=== PATIENT | male | born 1985 | race Caucasian/White ===

== ENCOUNTER 2018-04-24 12:05 | Inpatient (IN) | payer MEDICAID ==
[2018-04-24] MEDS ORDERED: Pantoprazole 80 MG in Sodium Chloride 0.9% 100 ML IV ONE (12:24)
[2018-04-24] MEDS ORDERED: Sodium Chloride 0.9% 1,000 ML IV ONE (12:27)
[2018-04-24 12:40] LABS: % BASOPHILS 0.4 % (0.0-2.0); % EOSINOPHILS 0.3 % (0.0-5.0); % LYMPHOCYTES 9.1 % (20.0-50.0); % MONOCYTES 2.4 % (2.0-10.0); % NEUTROPHILS 87.8 % (40.0-80.0); BASOPHILE ABSOLUTE 0.1 Th/cumm (0-0.2); HEMATOCRIT 49.8 % (41.0-60); HEMOGLOBIN 16.3 gm/dL (12-16); LYMPHOCYTE ABSOLUTE 1.3 Th/cmm (1.5-3.0); MEAN CELL VOLUME 86.4 fl (80-99); MEAN CORPUSCULAR HEMOGLOBIN 28.2 pg (26.0-30.0); MEAN CORPUSCULAR HGB CONC 32.6 pg (28.0-36.0); MEAN PLATELET VOLUME 9.7 fl; MONOCYTE ABSOLUTE 0.3 Th/cmm (0.3-1.0); NEUTROPHILE ABSOLUTE 12.3 Th/cmm (1.8-8.0); PLATELET COUNT 240 Th/cmm (150-400); RED BLOOD COUNT 5.76 Mil/cmm (4.30-5.70); RED CELL DISTRIBUTION WIDTH 12.1 % (11.5-20.0)
--- NOTE | 2018-04-24 12:42 | ED Physician Chart ---
ED Chief Complaint/HPI - Patient Information Date Seen:: 04/24/18 Time Seen:: 12:21 Chief Complaint:: nausea, vomiting & abd pain History of Present Illness:: nausea, vomiting & abd pain in a man who knows that he is a diabetic and stopped taking metformin and glyburide years ago. Allergies:: Allergies Allergy/AdvReac Type Severity Reaction Status Date / Time No Known Allergies Allergy Verified 04/24/18 12:20 Vitals:: Vital Signs - 8 hr 04/24/18 12:21 Temp 98.8 F HR 115 RR 22 BP 150/93 O2 Sat % 100 Historian:: Patient, Family Member Review:: Nurse's Note Reviewed ED Review of Systems - Review of Systems General/Constitutional: No fever, No chills, No weight loss, No weakness, No diaphoresis, No edema, No loss of appetite Skin: No skin lesions, No rash, No bruising Head: No headache, No light-headedness Eyes: No loss of vision, No pain, No diplopia ENT: No earache, No nasal drainage, No sore throat, No tinnitus Neck: No neck pain, No swelling, No thyromegaly, No stiffness, No mass noted Cardio Vascular: No chest pain, No palpitations, No PND, No orthopnea, No edema Pulmonary: No SOB, No cough, No sputum, No wheezing GI: Nausea, Vomiting, Pain G/U: No dysuria, No frequency, No hematuria Musculoskeletal: No bone or joint pain, No back pain, No muscle pain Endocrine: No polyuria, No polydipsia Psychiatric: No prior psych history, No depression, No anxiety, No suicidal ideation Hematopoietic: No bruising, No lymphadenopathy Allergic/Immuno: No urticaria, No angioedema Neurological: No syncope, No focal symptoms, No weakness, No paresthesia, No headache, No seizure, No dizziness, No confusion, No vertigo ED Past Medical History - Past Medical History Obtainable: Yes Past Medical History: DM ED Physical Exam - Physical Examination General/Constitutional: Awake, GCS 15 Other Gen/Cons comments:: pale and ill-appearing. Head: Atraumatic Eyes: Lids, conjuctiva normal Other Skin comments:: pale skin Neck: Nontender, Full ROM w/o pain, No JVD, No nuchal rigidity, No bruit, No mass, No stridor Respiratory: Nl effort/Exclusion, Clear to Auscultation, No Wheeze/Rhonchi/Rales Other Cardio Vascular comments:: tachycardia. Other GI comments:: nonspecific tenderness. coffee ground emesis. : No CVA tenderness Extremities: No tenderness or effusion Neuro/Psych: Alert/oriented, Normal motor strength Other Neuro/Psych comments:: in distress from vomiting. Misc: Normal back, No paraspinal tenderness ED Labs/Radiology/EKG Results - Lab Results Results: Laboratory Tests 04/24/18 12:16 POC Glucose 426 H ED Assessment - Assessment General Assessment: unifocal PVC's on monitor. Assessment/Comments:: EKG from 12:49:35 p.m. reveals sinus tachycardia with a flipped t wave in III, AVF and V1. spoke to Dr. Dobbs about admitting this patient to the ICU. ED Septic Shock - . Is Septic Shock (SBP<90, OR Lactate>4 mmol\L) present?: No - <6hrs of presentation: Vital Signs: Vital Signs - 8 hr 04/24/18 12:21 Temp 98.8 F HR 115 RR 22 BP 150/93 O2 Sat % 100 ED Reassessment (Disposition) - Reassessment Reassessment Condition:: Improved - Diagnosis Diagnosis:: Diabetic ketoacidosis Poorly controlled diabetes in a non-compliant diabetic Upper GI bleed Leukocytosis Urinary retention Enlarged prostate. Splenomegaly Distended stomach. - Patient Disposition Discharge/Transfer:: Acute Care w/in this hosp Admitted to:: ICU Condition at Disposition:: Stable, Improved
[2018-04-24 13:00] LABS: ALB/GLOB RATIO 1.6 (1.0-1.8); ALBUMIN 4.7 gm/dL (4.2-5.5); ALKALINE PHOSPHATASE 73 U/L (34-104); AMYLASE SERUM 30 U/L (29-103); ANION GAP 30.6 (7.0-16.0); BILIRUBIN,TOTAL 0.6 mg/dL (0.3-1.0); BUN - UREA NITROGEN 22 mg/dL (7-25); CALCIUM SERUM 10.1 mg/dL (8.6-10.3); CARBON DIOXIDE 12.3 mEq/L (21.0-31.0); CHLORIDE 93 mEq/L (98-107); CREATININE - SERUM 1.2 mg/dL (0.7-1.3); GFR AFRICAN-AMERICAN > 60.0 ml/min (>90); GFR NON AFRICAN-AMERICAN > 60.0 ml/min; LIPASE 3 U/L (11-82); MAGNESIUM 1.8 mg/dL (1.9-2.7); PHOSPHOROUS 4.3 mg/dL (2.5-5.0); POTASSIUM SERUM 3.9 mEq/L (3.5-5.1); SGOT 15 U/L (13-39); SGPT/ALT 37 U/L (7-52); SODIUM SERUM 132 mEq/L (136-145); TOTAL PROTEIN,SERUM 7.7 gm/dL (6.0-8.3)
[2018-04-24 13:01] LABS: GLUCOSE 470 mg/dL (70-105)
[2018-04-24 13:27] LABS: ALLEN TEST Positive; pH 7.33 (7.35-7.45)
[2018-04-24] MEDS ORDERED: INSULIN HUMAN REGULAR 100 UNITS/ML UNIT IVP ONE (13:51)
[2018-04-24] MEDS ORDERED: INSULIN HUMAN REGULAR 100 UNITS/ML UNIT ONE (14:25)
[2018-04-24] MEDS ORDERED: Magnesium Sulfate 1 gm/2 mL 2mL Vial IV ONE (14:25)
[2018-04-24] MEDS: INSULIN ASPART SLIDING SCALE 100 UNITS/ML UNIT SUBQ SCH ×2 (18:17→21:40)
--- NOTE | 2018-04-24 18:36 | Consultation ---
DATE OF CONSULTATION: 04/24/2018 REASON FOR CONSULTATION: Abdominal pain, nausea, vomiting. This consult was obtained through the request of Dr. Dobbs for this 33-year-old with history of diabetes presenting to the hospital because of abdominal pain, nausea, vomiting, found to be in diabetic ketoacidosis and because of the pain and nausea, vomiting GI consult was called in for further evaluation. The patient denies any hematemesis, melena or hematochezia. Some loose bowel movement yesterday. Pain has been going on for a couple of days, had those episodes every now and then. The patient never had endoscopy before and right now pain is better. PAST MEDICAL HISTORY: Diabetes. PAST SURGICAL HISTORY: Negative. SOCIAL HISTORY: Smokes 1 pack of cigarettes a day, nonalcoholic, used cannabis. FAMILY HISTORY: Noncontributory. ALLERGIES: No known drug allergy. MEDICATIONS: The patient was started on Protonix, and insulin. REVIEW OF SYSTEMS: He has about 30-35 pounds weight loss over the last couple of months. He has loose bowel movement every now and then. No constipation, no bleeding. PHYSICAL EXAMINATION: GENERAL: The patient is awake. Oriented to self, place, and time, in mild distress. VITAL SIGNS: Blood pressure is 150/93, heart rate is 115, respiratory rate is 22, and temperature is 98.8. HEAD AND NECK: Pupils reactive to light and accommodation. Extraocular muscles intact. Sclerae are anicteric. Conjunctivae not pale. Oral cavity, no lesion. NECK: Supple, no jugular venous distention, no carotid lymph node. CHEST: Good respiratory movements. LUNGS: Clear to auscultation. CARDIOVASCULAR: Regular rate and rhythm. No murmur or gallop. ABDOMEN: Soft, positive bowel sounds. Abdomen is not tender, but the sensation of pressure. EXTREMITIES: Lower extremities, no edema. CENTRAL NERVOUS SYSTEM: Grossly nonfocal. LABORATORY DATA: White count 14. Rest of CBC unremarkable. Bicarbonate is 12.3, glucose 170, magnesium 1.8. Liver enzymes are normal. Lipase is 3. IMPRESSION: A 33-year-old diabetic presented with diabetic ketoacidosis and abdominal pain, nausea, vomiting. ASSESSMENT AND PLAN: 1. Abdominal pain, nausea, vomiting, this is secondary to diabetic ketoacidosis. At this time, it seems clinically patient is better, so we will continue his IV fluids. Continue clear liquid diet, sugar free, he is to be managed for the diabetes by an explosives operator and PCP, but we will continue with PPI, liquid diet, IV fluids, monitor his symptoms. At this time, it seems it is all related to diabetic ketoacidosis. He should improve gradually. If not, then we will consider endoscopy. 2. Diabetic ketoacidosis per Dr. Dobbs and other pre owned sales consultant. Thank you, Dr. Dobbs, for allowing me to participate in the care of the patient. If you have any further questions, please let me know. JOB# [id number]
[2018-04-24 18:43] LABS: URINE SOURCE CATH
[2018-04-24 18:51] VITALS: BP 132/78
[2018-04-24 19:03] LABS: URINE BILIRUBIN NEGATIVE (NEGATIVE); URINE BLOOD SMALL (NEGATIVE); URINE GLUCOSE (UA) >=1000 mg/dL (NEGATIVE); URINE KETONE >=80 mg/dL (NEGATIVE); URINE LEUKOCYTE ESTERASE NEGATIVE (NEGATIVE); URINE MICROSCOPIC INDICATED? YES; URINE NITRATE NEGATIVE (NEGATIVE); URINE PH 5.5 (4.6 - 8.0); URINE PROTEIN TRACE mg/dL (NEGATIVE); URINE UROBILINOGEN 0.2 E.U./dL (0.2 - 1.0)
[2018-04-24 19:04] LABS: URINE CLARITY CLEAR (CLEAR); URINE COLOR YELLOW
[2018-04-24 19:05] LABS: URINE BACTERIA FEW /hpf (NONE SEEN); URINE EPITHELIAL CELLS NONE SEEN /lpf (FEW); URINE RBC NONE SEEN /hpf (0-5)
[2018-04-24 19:06] LABS: AMPHETAMINE URINE NEGATIVE (NEGATIVE); BARBITURATES URINE NEGATIVE (NEGATIVE); BENZODIAZEPINES QUAL URINE NEGATIVE (NEGATIVE); CANNABINOID THC NEGATIVE (NEGATIVE); COCAINE METABOLITE QUAL URINE NEGATIVE (NEGATIVE); METHADONE URINE NEGATIVE (NEGATIVE); METHAMPHETAMINES QUAL URINE NEGATIVE (NEGATIVE); OPIATES (MORPHINE) QUAL. URINE NEGATIVE (NEGATIVE); PHENCYCLIDINE (PCP) URINE NEGATIVE (NEGATIVE); TRICYCLICS (TCA) QUAL. URINE NEGATIVE (NEGATIVE)
[2018-04-24] MEDS ORDERED: Piperacillin Sodium/Tazobact 3.375 gm Vial IV ONE ×2 (21:39)
[2018-04-24] MEDS ORDERED: Pantoprazole 80 MG in Sodium Chloride 0.9% 100 ML IV SCH (23:00)
[2018-04-24] MEDS ORDERED: HYDROmorphone 2 mg/mL 1mL Vial IVP ONE (23:11)
[2018-04-25 05:30] LABS: % BASOPHILS 0.9 % (0.0-2.0); % EOSINOPHILS 0.1 % (0.0-5.0); % LYMPHOCYTES 13.5 % (20.0-50.0); % NEUTROPHILS 79.5 % (40.0-80.0); BASOPHILE ABSOLUTE 0.2 Th/cumm (0-0.2); HEMATOCRIT 45.9 % (41.0-60); LYMPHOCYTE ABSOLUTE 2.3 Th/cmm (1.5-3.0); MEAN CELL VOLUME 84.3 fl (80-99); MEAN CORPUSCULAR HEMOGLOBIN 29.3 pg (26.0-30.0); MEAN CORPUSCULAR HGB CONC 34.8 pg (28.0-36.0); MEAN PLATELET VOLUME 9.1 fl; NEUTROPHILE ABSOLUTE 13.5 Th/cmm (1.8-8.0); PLATELET COUNT 234 Th/cmm (150-400); RED BLOOD COUNT 5.44 Mil/cmm (4.30-5.70); RED CELL DISTRIBUTION WIDTH 12.2 % (11.5-20.0)
[2018-04-25 05:55] LABS: ALB/GLOB RATIO 1.6 (1.0-1.8); ALKALINE PHOSPHATASE 56 U/L (34-104); ANION GAP 16.7 (7.0-16.0); BILIRUBIN,TOTAL 0.5 mg/dL (0.3-1.0); BUN - UREA NITROGEN 22 mg/dL (7-25); CALCIUM SERUM 9.4 mg/dL (8.6-10.3); CARBON DIOXIDE 19.4 mEq/L (21.0-31.0); CHLORIDE 103 mEq/L (98-107); GFR AFRICAN-AMERICAN > 60.0 ml/min (>90); GFR NON AFRICAN-AMERICAN > 60.0 ml/min; POTASSIUM SERUM 4.1 mEq/L (3.5-5.1); SGOT 10 U/L (13-39); SGPT/ALT 26 U/L (7-52); SODIUM SERUM 135 mEq/L (136-145); TOTAL PROTEIN,SERUM 6.5 gm/dL (6.0-8.3)
[2018-04-25 06:08] LABS: GLUCOSE 282 mg/dL (70-105)
[2018-04-25 06:13] LABS: MAGNESIUM 2.1 mg/dL (1.9-2.7); PHOSPHOROUS 2.8 mg/dL (2.5-5.0)
[2018-04-25] MEDS ORDERED: Morphine Sulfate 2 mg/mL 1mL Syr IVP PRN (07:10)
[2018-04-25] MEDS: INSULIN ASPART SLIDING SCALE 100 UNITS/ML UNIT SUBQ SCH ×4 (07:25→21:00)
[2018-04-25] MEDS: Sodium Chloride 0.45% 1,000 ML IV SCH ×2 (07:33→23:56)
--- NOTE | 2018-04-25 07:55 | Diagnostic Imaging Report ---
CT abdomen and pelvis without intravenous contrast Indication: Abdominal pain Comparison: None, Technique: Axial images were obtained from the lung bases to the bilateral proximal femurs without IV contrast. Coronal reconstructions were made. total DLP: 312, CTDI5.8 FINDINGS: Hypoventilatory and atelectatic changes of the lung bases are noted. Assessment of the solid organs is limited due to lack of IV contrast. No evidence of focal hepatic, or splenic lesions. Mildly prominent spleen is noted. Distended stomach is noted fluid and food contents. Limited assessment of the pancreas demonstrates no obvious focal lesions. No focal adrenal lesions. There is mild right hydronephrosis. Markedly distended urinary bladder is noted. Punctate prostate gland calcifications are noted. The prostate gland is borderline prominent. No renal stones. Mild right hydroureter is noted. No obvious ureteral stones identified. Stool and air filled loops of bowel are noted. Appendix is not well-visualized. No free air or free fluid. There is minimal spinal scoliosis. IMPRESSION: Mild right hydronephrosis and mild right hydroureter. No radiopaque renal or ureteral stones identified. This may be due to a markedly distended urinary bladder or may be due to underlying inflammatory process. Please clinical findings and UA levels. Borderline prominent prostate gland. Borderline splenomegaly. The appendix is not visualized. Distended stomach with fluid and food contents.
--- NOTE | 2018-04-25 08:22 | Diagnostic Imaging Report ---
Portable chest x-ray History: Shortness of breath Allowing for portable technique the heart size is normal. No focal pulmonary parenchymal processes. No hilar or mediastinal abnormalities. Impression: No acute abnormalities.
--- NOTE | 2018-04-25 08:30 | Diagnostic Imaging Report ---
Portable chest x-ray History: Cough Allowing for portable technique the heart size is normal. No focal pulmonary parenchymal processes. No hilar or mediastinal abnormalities. Impression: No acute abnormalities.
--- NOTE | 2018-04-25 09:03 | History and Physical ---
History of Present Illness - HPI Chief Complaint: Nausea, vomiting, and abdominal pain. Elevated blood sugars HPI: 33y/o male who presents to [facility] for history of nausea, vomiting and abdominal pain. Patient has a history of diabetes mellitus and had stopped the medication years ago. Patient was previously taking Metformin and glyburide. His intiial labwork revealed the following ... WBC 14.0 H/H 16.3/49.8 plat 240 Na 132 K 3.9 Bun/cr 22/1.2 glu 470 Mg 1.8 UA glu >1000 ketones >80 blood >small Patient was subsequently admitted to ICU for further possible DKA. Vital Signs: Last Vital Signs Temp 98.8 F 04/25/18 04:00 Pulse 109 04/25/18 06:00 Resp 12 04/25/18 06:00 BP 144/94 04/25/18 06:00 Pulse Ox 100 04/25/18 08:00 Past Medical History Cardiovascular: Report: No Pertinent Hx Pulmonary: Report: No Pertinent Hx [place] [place]: Report: No Pertinent Hx GI: Report: No Pertinent Hx Psych: Report: No Pertinent Hx Musculoskeletal: Report: No Pertinent Hx Rheumatologic: Report: No pertinent Hx Infectious Disease: Report: No Pertinent Hx Renal/: Report: No Pertinent Hx Endocrine: Report: Diabetes Dermatology: Report: No Pertinent Hx - Past Surgical History Past Surgical History: No pertinent Hx Family Medical History - Family Member Mother Name:: MAXIME Living Status: Still Living Hx Family Cancer: No Hx Family Coronary Artery Disease: No Hx Family Congestive Heart Failure: No Hx Family Hypertension: Yes Hx Family Stroke: No Hx Family Diabetes: Yes Hx Family Seizures: No Hx Family Dementia: No Hx Family AIDS: No Hx Family HIV: No Hx Family COPD: No Hx Family Hepatitis: No Hx Family Psychiatric Problems: No Hx Family Tuberculosis: No Social History Smoke: No Alcohol: None Drugs: None Lives: With Family - Medications Home Medications: Home Medication Medication Instructions Recorded Type NK [No Home Meds] 04/24/18 History - Allergies Allergies/Adverse Reactions: Allergies Allergy/AdvReac Type Severity Reaction Status Date / Time No Known Allergies Allergy Verified 04/24/18 12:20 Review of Systems - Review of Systems Constitutional: Report: No Significant Eyes: Report: No Significant ENT: Report: No Significant Respiratory: Report: Shortness of Breath Cardiovascular: Report: No Significant Gastrointestinal: Report: Nausea, Vomiting, Abdominal Pain Genitourinary: Report: No Significant Musculoskeletal: Report: No Significant Skin: Report: No Significant Neurological: Report: No Significant Physical Exam - Physical Exam HEENT: Report: Ears Nose Throat within normal limits, Pharnyx within normal limits Neck: Report: Within normal limits Cardiovascular Systems: Report: +s1/s2 noted, Regular, Rate and Rhythm Respiratory: Report: Breath Sounds are within normal limits, Clear to Auscultation of lung [place] Abdomen: Report: Tender to palpation Back: Report: Inspection of back is within normal limits. Extremities: Report: Non-tender to palpation. - Lab Results All Lab Results last 24 hours: Laboratory Results - last 24 hr 04/24/18 04/24/18 04/24/18 12:16 12:30 12:30 WBC 14.0 H RBC 5.76 H Hgb 16.3 Hct 49.8 MCV 86.4 MCH 28.2 MCHC Differential 32.6 RDW 12.1 Plt Count 240 MPV 9.7 Neutrophils % 87.8 H Lymphocytes % 9.1 L Monocytes % 2.4 Eosinophils % 0.3 Basophils % 0.4 Specimen Source Sample Site pH pCO2 pO2 HCO3 Base Excess O2 Saturation Davi Test Vent Rate Inspired O2 Tidal Volume PEEP Pressure (ins/psv/peep) Critical Value Sodium 132 L Potassium 3.9 Chloride 93 L Carbon Dioxide 12.3 L Anion Gap 30.6 H BUN 22 Creatinine 1.2 Est GFR ( Amer) > 60.0 Est GFR (Non-Af Amer) > 60.0 BUN/Creatinine Ratio 18.3 Glucose 470 H* POC Glucose 426 H Whole Bld Lactic Acid Calcium 10.1 Phosphorus 4.3 Magnesium 1.8 L Total Bilirubin 0.6 AST 15 ALT 37 Alkaline Phosphatase 73 Troponin I Total Protein 7.7 Albumin 4.7 Globulin 3.0 Albumin/Globulin Ratio 1.6 Amylase 30 Lipase 3 L Urine Source Urine Color Urine Clarity Urine pH Ur Specific Timpson Urine Protein Urine Glucose (UA) Urine Ketones Urine Blood Urine Nitrate Urine Bilirubin Urine Urobilinogen Ur Leukocyte Esterase Urine RBC Urine WBC Ur Epithelial Cells Urine Bacteria Urine Opiates Screen Urine Methadone Screen Ur Barbiturates Screen Ur Tricyclics Screen Ur Phencyclidine Scrn Amphetamines Screen U Methamphetamines Scrn U Benzodiazepines Scrn U Cocaine Metab Screen U Cannabinoids Screen Blood Type Antibody Screen 1004/24/18 04/24/18 12:30 12:30 12:30 WBC RBC Hgb Hct MCV MCH MCHC Differential RDW Plt Count MPV Neutrophils % Lymphocytes % Monocytes % Eosinophils % Basophils % Specimen Source Sample Site pH pCO2 pO2 HCO3 Base Excess O2 Saturation Davi Test Vent Rate Inspired O2 Tidal Volume PEEP Pressure (ins/psv/peep) Critical Value Sodium Potassium Chloride Carbon Dioxide Anion Gap BUN Creatinine Est GFR ( Amer) Est GFR (Non-Af Amer) BUN/Creatinine Ratio Glucose POC Glucose Whole Bld Lactic Acid 4.06 H* Calcium Phosphorus Magnesium Total Bilirubin AST ALT Alkaline Phosphatase Troponin I 0.01 Total Protein Albumin Globulin Albumin/Globulin Ratio Amylase Lipase Urine Source Urine Color Urine Clarity Urine pH Ur Specific Timpson Urine Protein Urine Glucose (UA) Urine Ketones Urine Blood Urine Nitrate Urine Bilirubin Urine Urobilinogen Ur Leukocyte Esterase Urine RBC Urine WBC Ur Epithelial Cells Urine Bacteria Urine Opiates Screen Urine Methadone Screen Ur Barbiturates Screen Ur Tricyclics Screen Ur Phencyclidine Scrn Amphetamines Screen U Methamphetamines Scrn U Benzodiazepines Scrn U Cocaine Metab Screen U Cannabinoids Screen Blood Type O POSITIVE Antibody Screen NEGATIVE 04/24/18 04/24/18 04/24/18 13:14 13:50 14:24 WBC RBC Hgb Hct MCV MCH MCHC Differential RDW Plt Count MPV Neutrophils % Lymphocytes % Monocytes % Eosinophils % Basophils % Specimen Source Arterial Sample Site Right Radial pH 7.33 L pCO2 28.0 L pO2 109.0 H HCO3 17.4 L Base Excess -9.7 L O2 Saturation 98.0 Davi Test Positive Vent Rate NA Inspired O2 21% Tidal Volume NA PEEP NA Pressure (ins/psv/peep) NA Critical Value HSTEHNO Sodium Potassium Chloride Carbon Dioxide Anion Gap BUN Creatinine Est GFR ( Amer) Est GFR (Non-Af Amer) BUN/Creatinine Ratio Glucose POC Glucose 404 H Whole Bld Lactic Acid 1.45 Calcium Phosphorus Magnesium Total Bilirubin AST ALT Alkaline Phosphatase Troponin I Total Protein Albumin Globulin Albumin/Globulin Ratio Amylase Lipase Urine Source Urine Color Urine Clarity Urine pH Ur Specific Timpson Urine Protein Urine Glucose (UA) Urine Ketones Urine Blood Urine Nitrate Urine Bilirubin Urine Urobilinogen Ur Leukocyte Esterase Urine RBC Urine WBC Ur Epithelial Cells Urine Bacteria Urine Opiates Screen Urine Methadone Screen Ur Barbiturates Screen Ur Tricyclics Screen Ur Phencyclidine Scrn Amphetamines Screen U Methamphetamines Scrn U Benzodiazepines Scrn U Cocaine Metab Screen U Cannabinoids Screen Blood Type Antibody Screen 04/24/18 04/24/18 04/24/18 17:09 18:30 18:30 WBC RBC Hgb Hct MCV MCH MCHC Differential RDW Plt Count MPV Neutrophils % Lymphocytes % Monocytes % Eosinophils % Basophils % Specimen Source Sample Site pH pCO2 pO2 HCO3 Base Excess O2 Saturation Davi Test Vent Rate Inspired O2 Tidal Volume PEEP Pressure (ins/psv/peep) Critical Value Sodium Potassium Chloride Carbon Dioxide Anion Gap BUN Creatinine Est GFR ( Amer) Est GFR (Non-Af Amer) BUN/Creatinine Ratio Glucose POC Glucose 375 H Whole Bld Lactic Acid Calcium Phosphorus Magnesium Total Bilirubin AST ALT Alkaline Phosphatase Troponin I Total Protein Albumin Globulin Albumin/Globulin Ratio Amylase Lipase Urine Source CATH Urine Color YELLOW Urine Clarity CLEAR Urine pH 5.5 Ur Specific Timpson 1.025 Urine Protein TRACE Urine Glucose (UA) >=1000 H Urine Ketones >=80 H Urine Blood SMALL H Urine Nitrate NEGATIVE Urine Bilirubin NEGATIVE Urine Urobilinogen 0.2 Ur Leukocyte Esterase NEGATIVE Urine RBC NONE SEEN Urine WBC 2-5 Ur Epithelial Cells NONE SEEN Urine Bacteria FEW Urine Opiates Screen NEGATIVE Urine Methadone Screen NEGATIVE Ur Barbiturates Screen NEGATIVE Ur Tricyclics Screen NEGATIVE Ur Phencyclidine Scrn NEGATIVE Amphetamines Screen NEGATIVE U Methamphetamines Scrn NEGATIVE U Benzodiazepines Scrn NEGATIVE U Cocaine Metab Screen NEGATIVE U Cannabinoids Screen NEGATIVE Blood Type Antibody Screen 04/24/18 04/25/18 04/25/18 21:13 04:50 04:50 WBC 17.0 H RBC 5.44 Hgb 16.0 Hct 45.9 MCV 84.3 MCH 29.3 MCHC Differential 34.8 RDW 12.2 Plt Count 234 MPV 9.1 Neutrophils % 79.5 Lymphocytes % 13.5 L Monocytes % 6.0 Eosinophils % 0.1 Basophils % 0.9 Specimen Source Sample Site pH pCO2 pO2 HCO3 Base Excess O2 Saturation Davi Test Vent Rate Inspired O2 Tidal Volume PEEP Pressure (ins/psv/peep) Critical Value Sodium 135 L Potassium 4.1 Chloride 103 Carbon Dioxide 19.4 L Anion Gap 16.7 H BUN 22 Creatinine 1.0 Est GFR ( Amer) > 60.0 Est GFR (Non-Af Amer) > 60.0 BUN/Creatinine Ratio 22.0 Glucose 282 H D POC Glucose 250 H Whole Bld Lactic Acid Calcium 9.4 Phosphorus Magnesium Total Bilirubin 0.5 AST 10 L ALT 26 Alkaline Phosphatase 56 Troponin I Total Protein 6.5 Albumin 4.0 L Globulin 2.5 Albumin/Globulin Ratio 1.6 Amylase Lipase Urine Source Urine Color Urine Clarity Urine pH Ur Specific Timpson Urine Protein Urine Glucose (UA) Urine Ketones Urine Blood Urine Nitrate Urine Bilirubin Urine Urobilinogen Ur Leukocyte Esterase Urine RBC Urine WBC Ur Epithelial Cells Urine Bacteria Urine Opiates Screen Urine Methadone Screen Ur Barbiturates Screen Ur Tricyclics Screen Ur Phencyclidine Scrn Amphetamines Screen U Methamphetamines Scrn U Benzodiazepines Scrn U Cocaine Metab Screen U Cannabinoids Screen Blood Type Antibody Screen 04/25/18 04/25/18 04:50 04:56 WBC RBC Hgb Hct MCV MCH MCHC Differential RDW Plt Count MPV Neutrophils % Lymphocytes % Monocytes % Eosinophils % Basophils % Specimen Source Sample Site pH pCO2 pO2 HCO3 Base Excess O2 Saturation Davi Test Vent Rate Inspired O2 Tidal Volume PEEP Pressure (ins/psv/peep) Critical Value Sodium Potassium Chloride Carbon Dioxide Anion Gap BUN Creatinine Est GFR ( Amer) Est GFR (Non-Af Amer) BUN/Creatinine Ratio Glucose POC Glucose 260 H Whole Bld Lactic Acid Calcium Phosphorus 2.8 Magnesium 2.1 Total Bilirubin AST ALT Alkaline Phosphatase Troponin I Total Protein Albumin Globulin Albumin/Globulin Ratio Amylase Lipase Urine Source Urine Color Urine Clarity Urine pH Ur Specific Timpson Urine Protein Urine Glucose (UA) Urine Ketones Urine Blood Urine Nitrate Urine Bilirubin Urine Urobilinogen Ur Leukocyte Esterase Urine RBC Urine WBC Ur Epithelial Cells Urine Bacteria Urine Opiates Screen Urine Methadone Screen Ur Barbiturates Screen Ur Tricyclics Screen Ur Phencyclidine Scrn Amphetamines Screen U Methamphetamines Scrn U Benzodiazepines Scrn U Cocaine Metab Screen U Cannabinoids Screen Blood Type Antibody Screen - Assessment Assessment: Hyperglycemia Diabetes Mellitus uncontrolled possibly GI Bleed diabetic ketoacidosis Leukocytosis urinary retention Splenomegaly enlarged prostate - Plan Plan: Patient to be admitted to ICU for close monitoring GI consult Keep NPO, start IV fluids. Accuchecks ac hs Medium dose insulin sliding scale IV Zosyn ID consult Urology consult
--- NOTE | 2018-04-25 14:10 | Consultation ---
Consult Note - Consult Note Service Date: 04/25/18 Referring Physician: Ilia Dobbs Consult Note: PHYSICIAN Consultation Note: Date of Admission: 04/24/18 Purpose of Consultation: Leukocytosis. Chief Complaint: Patient STEPAN COTTRELL was admitted to location Intensive Care Unit with HYPERGLYCEMIA, POSSIBLE GI BLEED. History of Present Illness: 33y/o male with history of DM2, not taking his medication for a year presents to the ER for nausea, vomiting, abdominal pain. On initial evaluation, his temperature was 98.8 F and WBC count was 14k. His glucose was >400. Lactic acid was > 4, after fluid resiscitation, his sepsis w/u was performed and ID contult was called. Meanwhile, he was started on Past Medical History: DM2. Diagnoses TYPE 2 DIABETES MELLITUS WITH KETOACIDOSIS WITHOUT COMA (04/24/18) WEAKNESS (04/24/18) Allergies Allergy/AdvReac Type Severity Reaction Status Date / Time No Known Allergies Allergy Verified 04/24/18 12:20 Vital Signs Temp 98 F 04/25/18 12:00 Pulse 112 04/25/18 12:00 Resp 13 04/25/18 12:00 BP 126/86 04/25/18 12:00 Pulse Ox 100 04/25/18 12:00 Intake & Output 04/24/18 04/25/18 04/25/18 18:59 06:59 18:59 Intake Total 402 100 50 Output Total 952 900 Balance -550 -800 50 Weight (lbs) 59.506 kg 59.829 kg Intake: Intake, IV Amount 52 100 50 Piperacillin Sodium/ 50 Tazobact 3.375 gm In Sodium Chloride 0.9% 50 ml @ 100 mls/hr IV Q6H [facility] Rx#:[id number] Piperacillin Sodium/ 100 Tazobact 3.375 gm In Sodium Chloride 0.9% 50 ml @ 100 mls/hr IV Q8HR [facility] Rx#:[id number] Oral 350 Output: Urine 950 900 Emesis 2 Other: # Bowel Movements 1 Weight Source Bedscale Bedscale Laboratory Results - last 24 hr 04/24/18 04/24/18 04/24/18 12:30 13:50 14:24 WBC RBC Hgb Hct MCV MCH MCHC Differential RDW Plt Count MPV Neutrophils % Lymphocytes % Monocytes % Eosinophils % Basophils % Sodium Potassium Chloride Carbon Dioxide Anion Gap BUN Creatinine Est GFR ( Amer) Est GFR (Non-Af Amer) BUN/Creatinine Ratio Glucose POC Glucose 404 H Whole Bld Lactic Acid 1.45 Calcium Phosphorus Magnesium Total Bilirubin AST ALT Alkaline Phosphatase Total Protein Albumin Globulin Albumin/Globulin Ratio Urine Source Urine Color Urine Clarity Urine pH Ur Specific [place] Urine Protein Urine Glucose (UA) Urine Ketones Urine Blood Urine Nitrate Urine Bilirubin Urine Urobilinogen Ur Leukocyte Esterase Urine RBC Urine WBC Ur Epithelial Cells Urine Bacteria Urine Opiates Screen Urine Methadone Screen Ur Barbiturates Screen Ur Tricyclics Screen Ur Phencyclidine Scrn Amphetamines Screen U Methamphetamines Scrn U Benzodiazepines Scrn U Cocaine Metab Screen U Cannabinoids Screen Antibody Screen NEGATIVE 04/24/18 04/24/18 04/24/18 17:09 18:30 18:30 WBC RBC Hgb Hct MCV MCH MCHC Differential RDW Plt Count MPV Neutrophils % Lymphocytes % Monocytes % Eosinophils % Basophils % Sodium Potassium Chloride Carbon Dioxide Anion Gap BUN Creatinine Est GFR ( Amer) Est GFR (Non-Af Amer) BUN/Creatinine Ratio Glucose POC Glucose 375 H Whole Bld Lactic Acid Calcium Phosphorus Magnesium Total Bilirubin AST ALT Alkaline Phosphatase Total Protein Albumin Globulin Albumin/Globulin Ratio Urine Source CATH Urine Color YELLOW Urine Clarity CLEAR Urine pH 5.5 Ur Specific [place] 1.025 Urine Protein TRACE Urine Glucose (UA) >=1000 H Urine Ketones >=80 H Urine Blood SMALL H Urine Nitrate NEGATIVE Urine Bilirubin NEGATIVE Urine Urobilinogen 0.2 Ur Leukocyte Esterase NEGATIVE Urine RBC NONE SEEN Urine WBC 2-5 Ur Epithelial Cells NONE SEEN Urine Bacteria FEW Urine Opiates Screen NEGATIVE Urine Methadone Screen NEGATIVE Ur Barbiturates Screen NEGATIVE Ur Tricyclics Screen NEGATIVE Ur Phencyclidine Scrn NEGATIVE Amphetamines Screen NEGATIVE U Methamphetamines Scrn NEGATIVE U Benzodiazepines Scrn NEGATIVE U Cocaine Metab Screen NEGATIVE U Cannabinoids Screen NEGATIVE Antibody Screen 04/24/18 04/24/18 04/25/18 21:13 23:30 04:50 WBC 17.0 H RBC 5.44 Hgb 16.0 Hct 45.9 MCV 84.3 MCH 29.3 MCHC Differential 34.8 RDW 12.2 Plt Count 234 MPV 9.1 Neutrophils % 79.5 Lymphocytes % 13.5 L Monocytes % 6.0 Eosinophils % 0.1 Basophils % 0.9 Sodium Potassium Chloride Carbon Dioxide Anion Gap BUN Creatinine Est GFR ( Amer) Est GFR (Non-Af Amer) BUN/Creatinine Ratio Glucose POC Glucose 250 H 277 H Whole Bld Lactic Acid Calcium Phosphorus Magnesium Total Bilirubin AST ALT Alkaline Phosphatase Total Protein Albumin Globulin Albumin/Globulin Ratio Urine Source Urine Color Urine Clarity Urine pH Ur Specific [place] Urine Protein Urine Glucose (UA) Urine Ketones Urine Blood Urine Nitrate Urine Bilirubin Urine Urobilinogen Ur Leukocyte Esterase Urine RBC Urine WBC Ur Epithelial Cells Urine Bacteria Urine Opiates Screen Urine Methadone Screen Ur Barbiturates Screen Ur Tricyclics Screen Ur Phencyclidine Scrn Amphetamines Screen U Methamphetamines Scrn U Benzodiazepines Scrn U Cocaine Metab Screen U Cannabinoids Screen Antibody Screen 04/25/18 04/25/18 04/25/18 04:50 04:50 04:56 WBC RBC Hgb Hct MCV MCH MCHC Differential RDW Plt Count MPV Neutrophils % Lymphocytes % Monocytes % Eosinophils % Basophils % Sodium 135 L Potassium 4.1 Chloride 103 Carbon Dioxide 19.4 L Anion Gap 16.7 H BUN 22 Creatinine 1.0 Est GFR ( Amer) > 60.0 Est GFR (Non-Af Amer) > 60.0 BUN/Creatinine Ratio 22.0 Glucose 282 H D POC Glucose 260 H Whole Bld Lactic Acid Calcium 9.4 Phosphorus 2.8 Magnesium 2.1 Total Bilirubin 0.5 AST 10 L ALT 26 Alkaline Phosphatase 56 Total Protein 6.5 Albumin 4.0 L Globulin 2.5 Albumin/Globulin Ratio 1.6 Urine Source Urine Color Urine Clarity Urine pH Ur Specific [place] Urine Protein Urine Glucose (UA) Urine Ketones Urine Blood Urine Nitrate Urine Bilirubin Urine Urobilinogen Ur Leukocyte Esterase Urine RBC Urine WBC Ur Epithelial Cells Urine Bacteria Urine Opiates Screen Urine Methadone Screen Ur Barbiturates Screen Ur Tricyclics Screen Ur Phencyclidine Scrn Amphetamines Screen U Methamphetamines Scrn U Benzodiazepines Scrn U Cocaine Metab Screen U Cannabinoids Screen Antibody Screen 04/25/18 11:50 WBC RBC Hgb Hct MCV MCH MCHC Differential RDW Plt Count MPV Neutrophils % Lymphocytes % Monocytes % Eosinophils % Basophils % Sodium Potassium Chloride Carbon Dioxide Anion Gap BUN Creatinine Est GFR ( Amer) Est GFR (Non-Af Amer) BUN/Creatinine Ratio Glucose POC Glucose 228 H Whole Bld Lactic Acid Calcium Phosphorus Magnesium Total Bilirubin AST ALT Alkaline Phosphatase Total Protein Albumin Globulin Albumin/Globulin Ratio Urine Source Urine Color Urine Clarity Urine pH Ur Specific [place] Urine Protein Urine Glucose (UA) Urine Ketones Urine Blood Urine Nitrate Urine Bilirubin Urine Urobilinogen Ur Leukocyte Esterase Urine RBC Urine WBC Ur Epithelial Cells Urine Bacteria Urine Opiates Screen Urine Methadone Screen Ur Barbiturates Screen Ur Tricyclics Screen Ur Phencyclidine Scrn Amphetamines Screen U Methamphetamines Scrn U Benzodiazepines Scrn U Cocaine Metab Screen U Cannabinoids Screen Antibody Screen Home Medication Medication Instructions Recorded Type NK [No Home Meds] 04/24/18 History Current Medications Generic Name Dose Route Start Last Admin Trade Name Freq PRN Reason Stop Dose Admin Acetaminophen 650 mg 04/24/18 20:39 Tylenol PO 06/23/18 20:38 Q6H PRN Pain or Fever >101 Sodium Chloride 1,000 mls @ 75 mls/hr 04/25/18 07:30 04/25/18 07:33 Nacl 0.45% IV 06/24/18 07:29 75 mls/hr .[id number] [facility] Administration Piperacillin Sod/Tazobactam 50 mls @ 100 mls/hr 04/25/18 12:00 04/25/18 12:25 Sod 3.375 gm/ Sodium Chloride IV 06/24/18 11:59 Infused Q6H [facility] Infusion Insulin Aspart 0 units 04/24/18 18:00 04/25/18 11:53 Novolog Insulin Sliding Scale SUBQ 06/23/18 17:59 5 units ACHS [facility] Administration Protocol Lorazepam 2 mg 04/25/18 09:27 04/25/18 09:40 Ativan IVP 06/24/18 09:26 2 mg Q4HR PRN Administration Agitation Protocol Miscellaneous 1 ea 04/25/18 07:30 Zosyn Iv Per Pharmacy MC 06/24/18 07:29 PRN PRN PROTOCOL Morphine Sulfate 2 mg 04/25/18 07:10 Morphine IVP 06/24/18 07:09 Q4HR PRN Abdominal Pain Ondansetron HCl 4 mg 04/24/18 20:36 04/25/18 13:54 Zofran IV 06/23/18 20:35 4 mg Q6H PRN Administration Nausea / Vomiting Pantoprazole Sodium 40 mg 04/25/18 09:00 04/25/18 08:34 Protonix IVP 06/24/18 08:59 40 mg DAILY JAK Administration Sucralfate 1 gm 04/25/18 09:00 04/25/18 13:55 Carafate PO 06/24/18 08:59 Not Given QID [facility] Review of Systems: A 12 point ROS was reviewed with the pertinent positive and negatives noted in the HPI. General/Constitutional: No fever, No chills, No weight loss, No weakness, No diaphoresis, No edema, No loss of appetite Skin: No skin lesions, No rash, No bruising Head: No headache, No light-headedness Eyes: No loss of vision, No pain, No diplopia ENT: No earache, No nasal drainage, No sore throat, No tinnitus Neck: No neck pain, No swelling, No thyromegaly, No stiffness, No mass noted Cardio Vascular: No chest pain, No palpitations, No PND, No orthopnea, No edema Pulmonary: No SOB, No cough, No sputum, No wheezing GI: Nausea, Vomiting, abdominal Pain G/U: No dysuria, No frequency, No hematuria Musculoskeletal: No bone or joint pain, No back pain, No muscle pain Endocrine: No polyuria, No polydipsia Psychiatric: No prior psych history, No depression, No anxiety, No suicidal ideation Hematopoietic: No bruising, No lymphadenopathy Allergic/Immuno: No urticaria, No angioedema Neurological: No syncope, No focal symptoms, No weakness, No paresthesia, No headache, No seizure, No dizziness, No confusion, No vertigo Social History Smoking Status Current every day smoker Drug Use No: DENIAL Alcohol Use No: NO DRINK ALCOLOL Family Medical History Mother : DM2, HTN. Physical Exam: General: Comfortable, not in any distress, no fever. HEENT: Head: NC NT. Oral cavity: moist, pink tongue. EYES: No pallor, no icterus , pupil PERRLA. EOMI. Neck: Supple, no JVD, no Carotid bruit. No use of accessory neck muscle use. Cardio: S1 and S2 WNL. Respiratory: CTAP Abdominal: Soft NT ND BS. Genital/Urinary: Extremities: NCCE Neurological: AAOx3. Assessment: 1. Leukocytosis reactive. 2. Lactic acidosis. Improved. 3. DM2. 4. Right sided hydronephrosis 5. Azotemia improving. Plan: will continue Zosyn and follow up sepsis w/u. Glucose control. Urology consult Thank you, Dr Dobbs for involving me in taking care of this patient. Maria L, Yomi Real M.D. [id number]
--- NOTE | 2018-04-25 15:50 | Consultation ---
DATE OF CONSULTATION: UROLOGY CONSULTATION REASON FOR CONSULTATION: Seen for "urinary retention. HISTORY OF PRESENT ILLNESS: The patient is a 33-year-old who came to the hospital for nausea, vomiting, and abdominal pain and was found to be in diabetes ketoacidosis. He is noncompliant and has stopped taking his medications for some time, which ended up with this condition. He is uncooperative, does not give much history, and is quite difficult. Repeated questioning did not result in much of information or any valid answers. He denied having any urinary problems before this as well as ever having an infection or retention. Denied having any urologic surgery as well. PAST SURGICAL HISTORY: Denied ever having any operations. PAST MEDICAL HISTORY: Apparently has diabetes, which would indicate it is most likely juvenile diabetes, but again we do not know the time of onset and we do not know what medications he takes at home as he will not give us this information. ALLERGIES: None. REVIEW OF SYSTEMS: The patient had abdominal pain, vomiting, diarrhea, but no chest pain, coughing, or shortness of breath. Denies any sore throat or difficulty swallowing. No headache or seizures. No fever or weight loss. SOCIAL HISTORY: Denies alcohol, tobacco, or drug use. PHYSICAL EXAMINATION: GENERAL: He is in ICU, lethargic. He claims he is thirsty, but has been made n.p.o. because of the ketoacidosis. VITAL SIGNS: Temperature 99.3, heart rate 108, blood pressure 142/82, and T-max 99.7 so far. HEAD AND NECK: Normocephalic. Trachea central. Pupils equal and reactive. No jaundice. Thyroid and lymph nodes not palpable. Carotid bruit absent. CHEST: Symmetrical. LUNGS: Clear. No rales or rhonchi. CARDIOVASCULAR: Heart sounds normal, in sinus rhythm, no murmur. ABDOMEN: Soft, nontender, no organomegaly, mass, or hernia. GENITALIA: Normal male, no scrotal masses since Aguilar catheter draining clear urine. Rectally sphincter tone normal. Prostate is small, 10-15 grams, smooth, benign, and nontender definitely not enlarged. EXTREMITIES: No edema or lymphadenopathy. NEUROLOGIC: Nonfocal. Moves all 4 limbs. LABORATORY DATA: White count 17 up from 14,000 yesterday, hemoglobin 16, and platelets 234. Sodium 135, CO2 19.4, BUN 22, and creatinine 1.6. Sugars are still not very well controlled, namely 228, 260, 282, 277. Liver functions are normal. Urine showed more than 1000 mg of glucose and more than 80 of ketones, otherwise unremarkable. Toxic screen was negative. CT of the abdomen and pelvis was read as showing mild right hydronephrosis and hydroureter without any stones. Bladder was markedly distended as well. Borderline splenomegaly was noted. Chest x-ray showed no acute changes. IMPRESSION: 1. Urinary retention by history, not very well documented, but right hydronephrosis and hydroureter, could be a consequence of chronic retention, which could be from a neurogenic bladder secondary to uncontrolled diabetes. Recommend maintain Aguilar until he is ambulatory, then we will give him a trial of voiding and do in and out catheterization to see if he has significant retention. Would follow the hydronephrosis with an ultrasound in 6-8 weeks once we ensure that the bladder is draining well. If not, he will require cystoscopy and retrograde pyelogram. 2. Diabetes, uncontrolled. 3. Diabetic ketoacidosis. 4. Noncompliance. [facility]# [id number]
--- NOTE | 2018-04-25 15:50 | GI Progress Note ---
Subjective - Review of Systems Service Date: 04/25/18 Events since last encounter: No events Subjective: sleepy Objective - Results Result Diagrams: 04/25/18 04:50 04/25/18 04:50 Recent Labs: Laboratory Last Values WBC 17.0 Th/cmm (4.8-10.8) H 04/25/18 04:50 RBC 5.44 Mil/cmm (4.30-5.70) 04/25/18 04:50 Hgb 16.0 gm/dL (12-16) 04/25/18 04:50 Hct 45.9 % (41.0-60) 04/25/18 04:50 MCV 84.3 fl (80-99) 04/25/18 04:50 MCH 29.3 pg (26.0-30.0) 04/25/18 04:50 MCHC Differential 34.8 pg (28.0-36.0) 04/25/18 04:50 RDW 12.2 % (11.5-20.0) 04/25/18 04:50 Plt Count 234 Th/cmm (150-400) 04/25/18 04:50 MPV 9.1 fl 04/25/18 04:50 Neutrophils % 79.5 % (40.0-80.0) 04/25/18 04:50 Lymphocytes % 13.5 % (20.0-50.0) L 04/25/18 04:50 Monocytes % 6.0 % (2.0-10.0) 04/25/18 04:50 Eosinophils % 0.1 % (0.0-5.0) 04/25/18 04:50 Basophils % 0.9 % (0.0-2.0) 04/25/18 04:50 Specimen Source Arterial 04/24/18 13:14 Sample Site Right Radial 04/24/18 13:14 pH 7.33 (7.35-7.45) L 04/24/18 13:14 pCO2 28.0 mmHg (35.0-45.0) L 04/24/18 13:14 pO2 109.0 mmHg (80.0-100.0) H 04/24/18 13:14 HCO3 17.4 mEq/L (20.0-26.0) L 04/24/18 13:14 Base Excess -9.7 mEq/L (-3.0-3.0) L 04/24/18 13:14 O2 Saturation 98.0 % (92.0-100.0) 04/24/18 13:14 Davi Test Positive 04/24/18 13:14 Vent Rate NA 04/24/18 13:14 Inspired O2 21% 04/24/18 13:14 Tidal Volume NA 04/24/18 13:14 PEEP NA 04/24/18 13:14 Pressure (ins/psv/peep) NA 04/24/18 13:14 Critical Value HSTEHNO 04/24/18 13:14 Sodium 135 mEq/L (136-145) L 04/25/18 04:50 Potassium 4.1 mEq/L (3.5-5.1) 04/25/18 04:50 Chloride 103 mEq/L (98-107) 04/25/18 04:50 Carbon Dioxide 19.4 mEq/L (21.0-31.0) L 04/25/18 04:50 Anion Gap 16.7 (7.0-16.0) H 04/25/18 04:50 BUN 22 mg/dL (7-25) 04/25/18 04:50 Creatinine 1.0 mg/dL (0.7-1.3) 04/25/18 04:50 Est GFR ( Amer) > 60.0 ml/min (>90) 04/25/18 04:50 Est GFR (Non-Af Amer) > 60.0 ml/min 04/25/18 04:50 BUN/Creatinine Ratio 22.0 04/25/18 04:50 Glucose 226 mg/dL (70-105) H 04/25/18 14:25 POC Glucose 228 MG/DL (70 - 105) H 04/25/18 11:50 Whole Bld Lactic Acid 1.45 mmol/L (0.60-1.99) 04/24/18 14:24 Calcium 9.4 mg/dL (8.6-10.3) 04/25/18 04:50 Phosphorus 2.8 mg/dL (2.5-5.0) 04/25/18 04:50 Magnesium 2.1 mg/dL (1.9-2.7) 04/25/18 04:50 Total Bilirubin 0.5 mg/dL (0.3-1.0) 04/25/18 04:50 AST 10 U/L (13-39) L 04/25/18 04:50 ALT 26 U/L (7-52) 04/25/18 04:50 Alkaline Phosphatase 56 U/L (34-104) 04/25/18 04:50 Troponin I 0.01 ng/mL (0.01-0.05) 04/24/18 12:30 Total Protein 6.5 gm/dL (6.0-8.3) 04/25/18 04:50 Albumin 4.0 gm/dL (4.2-5.5) L 04/25/18 04:50 Globulin 2.5 gm/dL 04/25/18 04:50 Albumin/Globulin Ratio 1.6 (1.0-1.8) 04/25/18 04:50 Amylase 30 U/L (29-103) 04/24/18 12:30 Lipase 3 U/L (11-82) L 04/24/18 12:30 Urine Source CATH 04/24/18 18:30 Urine Color YELLOW 04/24/18 18:30 Urine Clarity CLEAR (CLEAR) 04/24/18 18:30 Urine pH 5.5 (4.6 - 8.0) 04/24/18 18:30 Ur Specific [place] 1.025 (1.005-1.030) 04/24/18 18:30 Urine Protein TRACE mg/dL (NEGATIVE) 04/24/18 18:30 Urine Glucose (UA) >=1000 mg/dL (NEGATIVE) H 04/24/18 18:30 Urine Ketones >=80 mg/dL (NEGATIVE) H 04/24/18 18:30 Urine Blood SMALL (NEGATIVE) H 04/24/18 18:30 Urine Nitrate NEGATIVE (NEGATIVE) 04/24/18 18:30 Urine Bilirubin NEGATIVE (NEGATIVE) 04/24/18 18:30 Urine Urobilinogen 0.2 E.U./dL (0.2 - 1.0) 04/24/18 18:30 Ur Leukocyte Esterase NEGATIVE (NEGATIVE) 04/24/18 18:30 Urine RBC NONE SEEN /hpf (0-5) 04/24/18 18:30 Urine WBC 2-5 /hpf (0-5) 04/24/18 18:30 Ur Epithelial Cells NONE SEEN /lpf (FEW) 04/24/18 18:30 Urine Bacteria FEW /hpf (NONE SEEN) 04/24/18 18:30 Urine Opiates Screen NEGATIVE (NEGATIVE) 04/24/18 18:30 Urine Methadone Screen NEGATIVE (NEGATIVE) 04/24/18 18:30 Ur Barbiturates Screen NEGATIVE (NEGATIVE) 04/24/18 18:30 Ur Tricyclics Screen NEGATIVE (NEGATIVE) 04/24/18 18:30 Ur Phencyclidine Scrn NEGATIVE (NEGATIVE) 04/24/18 18:30 Amphetamines Screen NEGATIVE (NEGATIVE) 04/24/18 18:30 U Methamphetamines Scrn NEGATIVE (NEGATIVE) 04/24/18 18:30 U Benzodiazepines Scrn NEGATIVE (NEGATIVE) 04/24/18 18:30 U Cocaine Metab Screen NEGATIVE (NEGATIVE) 04/24/18 18:30 U Cannabinoids Screen NEGATIVE (NEGATIVE) 04/24/18 18:30 Blood Type O POSITIVE 04/24/18 12:30 Antibody Screen NEGATIVE 04/24/18 12:30 - Physical Exam Vitals and I&O: Vital Signs Temp 98 F 04/25/18 12:00 Pulse 112 04/25/18 12:00 Resp 13 04/25/18 12:00 BP 126/86 04/25/18 12:00 Pulse Ox 100 04/25/18 12:00 Intake & Output 04/24/18 04/25/18 04/25/18 18:59 06:59 18:59 Intake Total 402 100 50 Output Total 952 900 Balance -550 -800 50 Weight (lbs) 59.506 kg 59.829 kg Intake: Intake, IV Amount 52 100 50 Piperacillin Sodium/ 50 Tazobact 3.375 gm In Sodium Chloride 0.9% 50 ml @ 100 mls/hr IV Q6H [facility] Rx#:[id number] Piperacillin Sodium/ 100 Tazobact 3.375 gm In Sodium Chloride 0.9% 50 ml @ 100 mls/hr IV Q8HR [facility] Rx#:[id number] Oral 350 Output: Urine 950 900 Emesis 2 Other: # Bowel Movements 1 Weight Source Bedscale Bedscale Active Medications: Current Medications Acetaminophen (Tylenol) 650 mg PO Q6H PRN PRN Reason: Pain or Fever >101 Stop: 06/23/18 20:38 Sodium Chloride (Nacl 0.45%) 1,000 mls @ 75 mls/hr IV .[id number] [facility] Stop: 06/24/18 07:29 Last Admin: 04/25/18 07:33 Dose: 75 mls/hr Piperacillin Sod/Tazobactam (Sod 3.375 gm/ Sodium Chloride) 50 mls @ 100 mls/ hr IV Q6H [facility] Stop: 06/24/18 11:59 Last Infusion: 04/25/18 12:25 Dose: Infused Insulin Aspart (Novolog Insulin Sliding Scale) 0 units SUBQ ACHS [facility]; Protocol Stop: 06/23/18 17:59 Last Admin: 04/25/18 11:53 Dose: 5 units Lorazepam (Ativan) 2 mg IVP Q4HR PRN; Protocol PRN Reason: Agitation Stop: 06/24/18 09:26 Last Admin: 04/25/18 09:40 Dose: 2 mg Miscellaneous (Zosyn Iv Per Pharmacy) 1 ea [facility] PRN PRN PRN Reason: PROTOCOL Stop: 06/24/18 07:29 Morphine Sulfate (Morphine) 2 mg IVP Q4HR PRN PRN Reason: Abdominal Pain Stop: 06/24/18 07:09 Ondansetron HCl (Zofran) 4 mg IV Q6H PRN PRN Reason: Nausea / Vomiting Stop: 06/23/18 20:35 Last Admin: 04/25/18 13:54 Dose: 4 mg Pantoprazole Sodium (Protonix) 40 mg IVP DAILY [facility] Stop: 06/24/18 08:59 Last Admin: 04/25/18 08:34 Dose: 40 mg Sucralfate (Carafate) 1 gm PO QID [facility] Stop: 06/24/18 08:59 Last Admin: 04/25/18 13:55 Dose: Not Given General: No acute distress Cardiovascular: Regular rate, Normal S1, Normal S2 Lungs: Clear to auscultation Abdomen: Bowel sounds, Soft Assessment/Plan - Assessment Assessment: Abd pain N/V - Plan Plan: 1. Abdominal pain Possibly gastroparesis Cont reglan and PPi 2. Nausea and Vomiting Cont Zofran, reglan, and PPI
[2018-04-25] MEDS: Metoclopramide 5 mg/mL 2mL Vial IVP SCH ×2 (17:41→23:39)
--- NOTE | 2018-04-25 22:13 | Progress Notes ---
DATE: 04/25/2018 PULMONARY/CRITICAL CARE CONSULTATION REASON FOR CONSULTATION: To help with acute metabolic problem with possibly COPD. CONSULT NOTE: This is a 33-year-old gentleman who has history of diabetes mellitus as well as a history of heavy smoking, has been taking metformin, glyburide, she started having more nausea and vomiting. Apparently, though he was taking medication. Subsequently, came in with the above problem and subsequently the patient was admitted and I was asked to see this patient for further care and necessary treatment. The patient claims to be doing okay and no coughing, no wheezing. Abdominal pain is little better than yesterday. Denies of any other related symptomatology otherwise. Smoking history is positive. Alcohol history is questionable. Drug issue is questionable and lives with her family. PHYSICAL EXAMINATION: GENERAL: This is an youngest looking gentleman, awake, alert, oriented, not in any acute distress. VITAL SIGNS: The patient's recorded vitals: Temperature is 98.5, blood pressure 126/86 and saturation 100. NECK: Veins not visualized. CHEST: Shows clear with diminished air entry. ABDOMEN: Soft, nontender. EXTREMITIES: Shows no peripheral edema. LABORATORY DATA: The patient's pertinent laboratory studies: White count is 17,000, hemoglobin 16. Electrolytes, sugar is 282 and other ____ test his essentially unremarkable. Urine shows elevated sugar, otherwise drug screen toxicology is negative. ASSESSMENT: The patient nausea, vomiting, exact etiology not clear. Diabetes mellitus, poor control primarily for not taking medication. PLANS AND SUGGESTIONS: We will continue sliding scale, ambulate the patient. I agree with GI input and hopefully if the symptoms get better, we will go ahead and start to switch her to oral medication, etc and we will see how she does in the next 24-48 hours and go from there. JOB# [id number]
[2018-04-26 05:09] LABS: % BASOPHILS 0.1 % (0.0-2.0); % EOSINOPHILS 0.3 % (0.0-5.0); % LYMPHOCYTES 11.8 % (20.0-50.0); % MONOCYTES 5.1 % (2.0-10.0); % NEUTROPHILS 82.7 % (40.0-80.0); HEMATOCRIT 48.1 % (41.0-60); LYMPHOCYTE ABSOLUTE 1.2 Th/cmm (1.5-3.0); MEAN CELL VOLUME 85.1 fl (80-99); MEAN CORPUSCULAR HEMOGLOBIN 28.3 pg (26.0-30.0); MEAN CORPUSCULAR HGB CONC 33.2 pg (28.0-36.0); MEAN PLATELET VOLUME 8.9 fl; MONOCYTE ABSOLUTE 0.5 Th/cmm (0.3-1.0); NEUTROPHILE ABSOLUTE 8.2 Th/cmm (1.8-8.0); PLATELET COUNT 205 Th/cmm (150-400); RED BLOOD COUNT 5.65 Mil/cmm (4.30-5.70); RED CELL DISTRIBUTION WIDTH 12.1 % (11.5-20.0)
[2018-04-26 05:31] LABS: ALB/GLOB RATIO 1.7 (1.0-1.8); ALBUMIN 4.1 gm/dL (4.2-5.5); ALKALINE PHOSPHATASE 54 U/L (34-104); ANION GAP 18.9 (7.0-16.0); BILIRUBIN,DIRECT 0.15 mg/dL (0.0-0.2); BILIRUBIN,TOTAL 0.7 mg/dL (0.3-1.0); BUN - UREA NITROGEN 20 mg/dL (7-25); CALCIUM SERUM 9.3 mg/dL (8.6-10.3); CARBON DIOXIDE 18.6 mEq/L (21.0-31.0); CHLORIDE 98 mEq/L (98-107); CREATININE - SERUM 1.1 mg/dL (0.7-1.3); GFR AFRICAN-AMERICAN > 60.0 ml/min (>90); GFR NON AFRICAN-AMERICAN > 60.0 ml/min; GLUCOSE 269 mg/dL (70-105); MAGNESIUM 1.8 mg/dL (1.9-2.7); POTASSIUM SERUM 3.5 mEq/L (3.5-5.1); SGOT 12 U/L (13-39); SGPT/ALT 23 U/L (7-52); SODIUM SERUM 132 mEq/L (136-145); TOTAL PROTEIN,SERUM 6.5 gm/dL (6.0-8.3); WHITE BLOOD COUNT 9.9 Th/cmm (4.8-10.8)
[2018-04-26] MEDS: Metoclopramide 5 mg/mL 2mL Vial IVP SCH ×2 (06:02→11:32)
[2018-04-26] MEDS: INSULIN ASPART SLIDING SCALE 100 UNITS/ML UNIT SUBQ SCH ×4 (07:45→21:03)
--- NOTE | 2018-04-26 09:03 | General Progress Note ---
Subjective - Review of Systems Service Date: 04/26/18 Subjective: Patient was seen this morning. feels much better. wants to eat. will advance as tolerate. Objective - Results Result Diagrams: 04/26/18 04:28 04/26/18 04:28 Recent Labs: Laboratory Last Values WBC 9.9 Th/cmm (4.8-10.8) D 04/26/18 04:28 RBC 5.65 Mil/cmm (4.30-5.70) 04/26/18 04:28 Hgb 16.0 gm/dL (12-16) 04/26/18 04:28 Hct 48.1 % (41.0-60) 04/26/18 04:28 MCV 85.1 fl (80-99) 04/26/18 04:28 MCH 28.3 pg (26.0-30.0) 04/26/18 04:28 MCHC Differential 33.2 pg (28.0-36.0) 04/26/18 04:28 RDW 12.1 % (11.5-20.0) 04/26/18 04:28 Plt Count 205 Th/cmm (150-400) 04/26/18 04:28 MPV 8.9 fl 04/26/18 04:28 Neutrophils % 82.7 % (40.0-80.0) H 04/26/18 04:28 Lymphocytes % 11.8 % (20.0-50.0) L 04/26/18 04:28 Monocytes % 5.1 % (2.0-10.0) 04/26/18 04:28 Eosinophils % 0.3 % (0.0-5.0) 04/26/18 04:28 Basophils % 0.1 % (0.0-2.0) 04/26/18 04:28 Specimen Source Arterial 04/24/18 13:14 Sample Site Right Radial 04/24/18 13:14 pH 7.33 (7.35-7.45) L 04/24/18 13:14 pCO2 28.0 mmHg (35.0-45.0) L 04/24/18 13:14 pO2 109.0 mmHg (80.0-100.0) H 04/24/18 13:14 HCO3 17.4 mEq/L (20.0-26.0) L 04/24/18 13:14 Base Excess -9.7 mEq/L (-3.0-3.0) L 04/24/18 13:14 O2 Saturation 98.0 % (92.0-100.0) 04/24/18 13:14 Davi Test Positive 04/24/18 13:14 Vent Rate NA 04/24/18 13:14 Inspired O2 21% 04/24/18 13:14 Tidal Volume NA 04/24/18 13:14 PEEP NA 04/24/18 13:14 Pressure (ins/psv/peep) NA 04/24/18 13:14 Critical Value HSTEHNO 04/24/18 13:14 Sodium 132 mEq/L (136-145) L 04/26/18 04:28 Potassium 3.5 mEq/L (3.5-5.1) 04/26/18 04:28 Chloride 98 mEq/L (98-107) 04/26/18 04:28 Carbon Dioxide 18.6 mEq/L (21.0-31.0) L 04/26/18 04:28 Anion Gap 18.9 (7.0-16.0) H 04/26/18 04:28 BUN 20 mg/dL (7-25) 04/26/18 04:28 Creatinine 1.1 mg/dL (0.7-1.3) 04/26/18 04:28 Est GFR ( Amer) > 60.0 ml/min (>90) 04/26/18 04:28 Est GFR (Non-Af Amer) > 60.0 ml/min 04/26/18 04:28 BUN/Creatinine Ratio 18.2 04/26/18 04:28 Glucose 269 mg/dL (70-105) H 04/26/18 04:28 POC Glucose 254 MG/DL (70 - 105) H 04/26/18 06:41 Whole Bld Lactic Acid 1.45 mmol/L (0.60-1.99) 04/24/18 14:24 Calcium 9.3 mg/dL (8.6-10.3) 04/26/18 04:28 Phosphorus 2.8 mg/dL (2.5-5.0) 04/25/18 04:50 Magnesium 1.8 mg/dL (1.9-2.7) L 04/26/18 04:28 Total Bilirubin 0.7 mg/dL (0.3-1.0) 04/26/18 04:28 Direct Bilirubin 0.15 mg/dL (0.0-0.2) 04/26/18 04:28 AST 12 U/L (13-39) L 04/26/18 04:28 ALT 23 U/L (7-52) 04/26/18 04:28 Alkaline Phosphatase 54 U/L (34-104) 04/26/18 04:28 Ammonia 50 umol/L (16-53) 04/26/18 04:58 Troponin I 0.01 ng/mL (0.01-0.05) 04/24/18 12:30 Total Protein 6.5 gm/dL (6.0-8.3) 04/26/18 04:28 Albumin 4.1 gm/dL (4.2-5.5) L 04/26/18 04:28 Globulin 2.4 gm/dL 04/26/18 04:28 Albumin/Globulin Ratio 1.7 (1.0-1.8) 04/26/18 04:28 Amylase 30 U/L (29-103) 04/24/18 12:30 Lipase 3 U/L (11-82) L 04/24/18 12:30 TSH 1.56 uIU/ml (0.34-5.60) 04/26/18 04:58 Urine Source CATH 04/24/18 18:30 Urine Color YELLOW 04/24/18 18:30 Urine Clarity CLEAR (CLEAR) 04/24/18 18:30 Urine pH 5.5 (4.6 - 8.0) 04/24/18 18:30 Ur Specific [place] 1.025 (1.005-1.030) 04/24/18 18:30 Urine Protein TRACE mg/dL (NEGATIVE) 04/24/18 18:30 Urine Glucose (UA) >=1000 mg/dL (NEGATIVE) H 04/24/18 18:30 Urine Ketones >=80 mg/dL (NEGATIVE) H 04/24/18 18:30 Urine Blood SMALL (NEGATIVE) H 04/24/18 18:30 Urine Nitrate NEGATIVE (NEGATIVE) 04/24/18 18:30 Urine Bilirubin NEGATIVE (NEGATIVE) 04/24/18 18:30 Urine Urobilinogen 0.2 E.U./dL (0.2 - 1.0) 04/24/18 18:30 Ur Leukocyte Esterase NEGATIVE (NEGATIVE) 04/24/18 18:30 Urine RBC NONE SEEN /hpf (0-5) 04/24/18 18:30 Urine WBC 2-5 /hpf (0-5) 04/24/18 18:30 Ur Epithelial Cells NONE SEEN /lpf (FEW) 04/24/18 18:30 Urine Bacteria FEW /hpf (NONE SEEN) 04/24/18 18:30 Urine Opiates Screen NEGATIVE (NEGATIVE) 04/24/18 18:30 Urine Methadone Screen NEGATIVE (NEGATIVE) 04/24/18 18:30 Ur Barbiturates Screen NEGATIVE (NEGATIVE) 04/24/18 18:30 Ur Tricyclics Screen NEGATIVE (NEGATIVE) 04/24/18 18:30 Ur Phencyclidine Scrn NEGATIVE (NEGATIVE) 04/24/18 18:30 Amphetamines Screen NEGATIVE (NEGATIVE) 04/24/18 18:30 U Methamphetamines Scrn NEGATIVE (NEGATIVE) 04/24/18 18:30 U Benzodiazepines Scrn NEGATIVE (NEGATIVE) 04/24/18 18:30 U Cocaine Metab Screen NEGATIVE (NEGATIVE) 04/24/18 18:30 U Cannabinoids Screen NEGATIVE (NEGATIVE) 04/24/18 18:30 Blood Type O POSITIVE 04/24/18 12:30 Antibody Screen NEGATIVE 04/24/18 12:30 - Physical Exam Vitals and I&O: Vital Signs Temp 99.8 F 04/26/18 00:00 Pulse 105 04/26/18 04:00 Resp 18 04/26/18 04:00 BP 127/85 04/26/18 04:00 Pulse Ox 98 04/26/18 04:00 Intake & Output 04/25/18 04/26/18 04/26/18 18:59 06:59 18:59 Intake Total 100 1100 Output Total 1350 Balance -1250 1100 Weight (lbs) 59.421 kg Intake: Intake, IV Amount 100 1100 Piperacillin Sodium/ 100 100 Tazobact 3.375 gm In Sodium Chloride 0.9% 50 ml @ 100 mls/hr IV Q6H [facility] Rx#:[id number] Sodium Chloride 0.45% 1, 1000 000 ml @ 75 mls/hr IV . [id number] [facility] Rx#:[id number] Output: Urine 1350 Other: Weight Source Bedscale Active Medications: Current Medications Acetaminophen (Tylenol) 650 mg PO Q6H PRN PRN Reason: Pain or Fever >101 Stop: 06/23/18 20:38 Glipizide (Glucotrol) 5 mg PO DAILY [facility] Stop: 06/25/18 08:59 Sodium Chloride (Nacl 0.45%) 1,000 mls @ 75 mls/hr IV .[id number] [facility] Stop: 06/24/18 07:29 Last Admin: 04/25/18 23:56 Dose: 75 mls/hr Piperacillin Sod/Tazobactam (Sod 3.375 gm/ Sodium Chloride) 50 mls @ 100 mls/ hr IV Q6H [facility] Stop: 06/24/18 11:59 Last Infusion: 04/26/18 06:35 Dose: Infused Insulin Aspart (Novolog Insulin Sliding Scale) 0 units SUBQ ACHS [facility]; Protocol Stop: 06/23/18 17:59 Last Admin: 04/26/18 07:45 Dose: 7 units Lorazepam (Ativan) 2 mg IVP Q4HR PRN; Protocol PRN Reason: Agitation Stop: 06/24/18 09:26 Last Admin: 04/25/18 23:56 Dose: 2 mg Metoclopramide HCl (Reglan) 10 mg IVP Q6HR [facility] Stop: 06/24/18 17:59 Last Admin: 04/26/18 06:02 Dose: 10 mg Miscellaneous (Zosyn Iv Per Pharmacy) 1 ea MC PRN PRN PRN Reason: PROTOCOL Stop: 06/24/18 07:29 Morphine Sulfate (Morphine) 2 mg IVP Q4HR PRN PRN Reason: Abdominal Pain Stop: 06/24/18 07:09 Ondansetron HCl (Zofran) 4 mg IV Q6H PRN PRN Reason: Nausea / Vomiting Stop: 06/23/18 20:35 Last Admin: 04/25/18 13:54 Dose: 4 mg Pantoprazole Sodium (Protonix) 40 mg IVP DAILY [facility] Stop: 06/24/18 08:59 Last Admin: 04/25/18 08:34 Dose: 40 mg Sucralfate (Carafate) 1 gm PO QID [facility] Stop: 06/24/18 08:59 Last Admin: 04/26/18 08:30 Dose: Not Given General: Alert, Oriented x3, No acute distress HEENT: Atraumatic, PERRLA Neck: Supple Cardiovascular: Regular rate, Normal S1, Normal S2 Lungs: Clear to auscultation Abdomen: Bowel sounds, Soft Extremities: no Clubbing, no Cyanosis, no Edema Assessment/Plan - Assessment Assessment: Hyperglycemia improved Diabetes Mellitus better controll diabetic ketoacidosis resolved Leukocytosis slowly improving urinary retention Splenomegaly enlarged prostate - Plan Plan: Patient to be admitted to ICU for close monitoring GI consult will start clear liquids and adv as tolerate will restart oral hypoglycemics. Accuchecks ac hs Medium dose insulin sliding scale IV Zosyn ID consult Urology consult Nutritional Asmnt/Malnutr-PDOC - Dietary Evaluation Malnutrition Findings (Please click <Entered> for more info): Nutritional Asmnt/Malnutrition Start: 04/25/18 16: 44 Text: Status: Complete Freq: Protocol: Document 04/25/18 16:44 MIGDALIA (Rec: 04/25/18 17:09 MIGDALIA ALVARENGA) Nutritional Asmnt/Malnutrition Patient General Information Nutritional Screening High Risk Diagnosis hyperglycemia, possible GI bleed Pertinent Medical Hx/Surgical Hx DM type II Subjective Information Pt was resting in ICU unit at time of visit. Per MD note, Pt 's aware of his diabetes, but has been non-compliant with his medications. Current Diet Order/ Nutrition Support NPO Pertinent Medications novolog, zosyn, reglan, zofran , protonix, piperacillin, Nacl 0.45% Pertinent Labs 04/25: glucose 282, Na 135, POC 217-260, Alb 4.0 04/24: glucose 470, Na 132, Cl 93, POC 250-426, Mg 1.8 Nutritional Hx/Data Height 1.73 m Height (Calculated Centimeters) 172.7 Current Weight (lbs) 59.829 kg Weight (Calculated Kilograms) 59.8 Weight (Calculated Grams) 71134.8 [place] Body Weight 154 lb Body Mass Index (BMI) 20.0 Weight Status Approriate GI Symptoms GI Symptoms Nausea Vomitting Last BM 04/24 Food Allergies No Skin Integrity/Comment: intact Estimated Nutritional Goals BEE in Kcals: Using Current wt Calories/Kcals/Kg 25-30 Kcals Calculated 9349-8501 Protein: Using Current wt Protein g/k.8-1 Protein Calculated 48-60 g Fluid: ml 0906-1982 (1 ml/kcal) Nutritional Problem 1. Problem Problem Altered nutrition related lab values Etiology hx of DM type II and non- compliance to medications Signs/Symptoms: glucose 282 and POC 260 Malnutrition Alert Is there a minimum of two criteria No selected? Query Text:Check all the applicable criteria. A minimum of two criteria are recommended for diagnosis of either severe or non-severe malnutrition. Malnutrition Related to Morbid Obesity Malnutrition related to morbid obesity No Intervention/Recommendation Comments 1. Monitor NPO status. Will provide nutrition education when oral diet started. 2. Monitor glucose labs. MD to manage insulin regimen. 3. F/U as high risk in 2-3 days, 04/27-04/28 Expected Outcomes/Goals Expected Outcomes/Goals 1. Start PO intake once able to and meet at least 75% of nutritional needs 2. labs to approach normal limits Reviewed by Debbie Brown RD
[2018-04-26 09:52] LABS: ALLEN TEST Positive; pH 7.38 (7.35-7.45)
--- NOTE | 2018-04-26 15:48 | GI Progress Note ---
Subjective - Review of Systems Service Date: 04/26/18 Events since last encounter: frequent BMs Subjective: C/O diarrhea Objective - Results Result Diagrams: 04/26/18 04:28 04/26/18 04:28 Recent Labs: Laboratory Last Values WBC 9.9 Th/cmm (4.8-10.8) D 04/26/18 04:28 RBC 5.65 Mil/cmm (4.30-5.70) 04/26/18 04:28 Hgb 16.0 gm/dL (12-16) 04/26/18 04:28 Hct 48.1 % (41.0-60) 04/26/18 04:28 MCV 85.1 fl (80-99) 04/26/18 04:28 MCH 28.3 pg (26.0-30.0) 04/26/18 04:28 MCHC Differential 33.2 pg (28.0-36.0) 04/26/18 04:28 RDW 12.1 % (11.5-20.0) 04/26/18 04:28 Plt Count 205 Th/cmm (150-400) 04/26/18 04:28 MPV 8.9 fl 04/26/18 04:28 Neutrophils % 82.7 % (40.0-80.0) H 04/26/18 04:28 Lymphocytes % 11.8 % (20.0-50.0) L 04/26/18 04:28 Monocytes % 5.1 % (2.0-10.0) 04/26/18 04:28 Eosinophils % 0.3 % (0.0-5.0) 04/26/18 04:28 Basophils % 0.1 % (0.0-2.0) 04/26/18 04:28 Specimen Source Arterial 04/26/18 09:36 Sample Site Right Radial 04/26/18 09:36 pH 7.38 (7.35-7.45) 04/26/18 09:36 pCO2 35.0 mmHg (35.0-45.0) 04/26/18 09:36 pO2 90.0 mmHg (80.0-100.0) 04/26/18 09:36 HCO3 22.0 mEq/L (20.0-26.0) 04/26/18 09:36 Base Excess -3.8 mEq/L (-3.0-3.0) L 04/26/18 09:36 O2 Saturation 97.0 % (92.0-100.0) 04/26/18 09:36 Davi Test Positive 04/26/18 09:36 Vent Rate N/A 10 09:36 Inspired O2 21 04/26/18 09:36 Tidal Volume N/A 10 09:36 PEEP N/A 04/26/18 09:36 Pressure (ins/psv/peep) N/A 04/26/18 09:36 Critical Value DM 04/26/18 09:36 Sodium 132 mEq/L (136-145) L 04/26/18 04:28 Potassium 3.5 mEq/L (3.5-5.1) 04/26/18 04:28 Chloride 98 mEq/L (98-107) 04/26/18 04:28 Carbon Dioxide 18.6 mEq/L (21.0-31.0) L 04/26/18 04:28 Anion Gap 18.9 (7.0-16.0) H 04/26/18 04:28 BUN 20 mg/dL (7-25) 04/26/18 04:28 Creatinine 1.1 mg/dL (0.7-1.3) 04/26/18 04:28 Est GFR ( Amer) > 60.0 ml/min (>90) 04/26/18 04:28 Est GFR (Non-Af Amer) > 60.0 ml/min 04/26/18 04:28 BUN/Creatinine Ratio 18.2 04/26/18 04:28 Glucose 269 mg/dL (70-105) H 04/26/18 04:28 POC Glucose 240 MG/DL (70 - 105) H 04/26/18 11:19 Whole Bld Lactic Acid 1.45 mmol/L (0.60-1.99) 04/24/18 14:24 Calcium 9.3 mg/dL (8.6-10.3) 04/26/18 04:28 Phosphorus 2.8 mg/dL (2.5-5.0) 04/25/18 04:50 Magnesium 1.8 mg/dL (1.9-2.7) L 04/26/18 04:28 Total Bilirubin 0.7 mg/dL (0.3-1.0) 04/26/18 04:28 Direct Bilirubin 0.15 mg/dL (0.0-0.2) 04/26/18 04:28 AST 12 U/L (13-39) L 04/26/18 04:28 ALT 23 U/L (7-52) 04/26/18 04:28 Alkaline Phosphatase 54 U/L (34-104) 04/26/18 04:28 Ammonia 50 umol/L (16-53) 04/26/18 04:58 Troponin I 0.01 ng/mL (0.01-0.05) 04/24/18 12:30 Total Protein 6.5 gm/dL (6.0-8.3) 04/26/18 04:28 Albumin 4.1 gm/dL (4.2-5.5) L 04/26/18 04:28 Globulin 2.4 gm/dL 04/26/18 04:28 Albumin/Globulin Ratio 1.7 (1.0-1.8) 04/26/18 04:28 Amylase 30 U/L (29-103) 04/24/18 12:30 Lipase 3 U/L (11-82) L 04/24/18 12:30 TSH 1.56 uIU/ml (0.34-5.60) 04/26/18 04:58 Urine Source CATH 04/24/18 18:30 Urine Color YELLOW 04/24/18 18:30 Urine Clarity CLEAR (CLEAR) 04/24/18 18:30 Urine pH 5.5 (4.6 - 8.0) 04/24/18 18:30 Ur Specific [place] 1.025 (1.005-1.030) 04/24/18 18:30 Urine Protein TRACE mg/dL (NEGATIVE) 04/24/18 18:30 Urine Glucose (UA) >=1000 mg/dL (NEGATIVE) H 04/24/18 18:30 Urine Ketones >=80 mg/dL (NEGATIVE) H 04/24/18 18:30 Urine Blood SMALL (NEGATIVE) H 04/24/18 18:30 Urine Nitrate NEGATIVE (NEGATIVE) 04/24/18 18:30 Urine Bilirubin NEGATIVE (NEGATIVE) 04/24/18 18:30 Urine Urobilinogen 0.2 E.U./dL (0.2 - 1.0) 04/24/18 18:30 Ur Leukocyte Esterase NEGATIVE (NEGATIVE) 04/24/18 18:30 Urine RBC NONE SEEN /hpf (0-5) 04/24/18 18:30 Urine WBC 2-5 /hpf (0-5) 04/24/18 18:30 Ur Epithelial Cells NONE SEEN /lpf (FEW) 04/24/18 18:30 Urine Bacteria FEW /hpf (NONE SEEN) 04/24/18 18:30 Stool Occult Blood NEGATIVE (NEGATIVE) 04/26/18 09:45 Urine Opiates Screen NEGATIVE (NEGATIVE) 04/24/18 18:30 Urine Methadone Screen NEGATIVE (NEGATIVE) 04/24/18 18:30 Ur Barbiturates Screen NEGATIVE (NEGATIVE) 04/24/18 18:30 Ur Tricyclics Screen NEGATIVE (NEGATIVE) 04/24/18 18:30 Ur Phencyclidine Scrn NEGATIVE (NEGATIVE) 04/24/18 18:30 Amphetamines Screen NEGATIVE (NEGATIVE) 04/24/18 18:30 U Methamphetamines Scrn NEGATIVE (NEGATIVE) 04/24/18 18:30 U Benzodiazepines Scrn NEGATIVE (NEGATIVE) 04/24/18 18:30 U Cocaine Metab Screen NEGATIVE (NEGATIVE) 04/24/18 18:30 U Cannabinoids Screen NEGATIVE (NEGATIVE) 04/24/18 18:30 Blood Type O POSITIVE 04/24/18 12:30 Antibody Screen NEGATIVE 04/24/18 12:30 - Physical Exam Vitals and I&O: Vital Signs Temp 98.4 F 04/26/18 15:03 Pulse 96 04/26/18 15:03 Resp 18 04/26/18 15:03 BP 145/95 04/26/18 15:03 Pulse Ox 100 04/26/18 15:03 Intake & Output 04/25/18 04/26/18 04/26/18 18:59 06:59 18:59 Intake Total 100 1100 Output Total 1350 Balance -1250 1100 Weight (lbs) 59.421 kg Intake: Intake, IV Amount 100 1100 Piperacillin Sodium/ 100 100 Tazobact 3.375 gm In Sodium Chloride 0.9% 50 ml @ 100 mls/hr IV Q6H [facility] Rx#:[id number] Sodium Chloride 0.45% 1, 1000 000 ml @ 75 mls/hr IV . [id number] [facility] Rx#:[id number] Output: Urine 1350 Other: Stool Characteristics Liquid Black Weight Source Bedscale Active Medications: Current Medications Acetaminophen (Tylenol) 650 mg PO Q6H PRN PRN Reason: Pain or Fever >101 Stop: 06/23/18 20:38 Last Admin: 04/26/18 11:29 Dose: 650 mg Bismuth Subsalicylate (Pepto-Bismol) 30 ml PO Q6HRT PRN PRN Reason: GI DISTRESS Stop: 06/25/18 15:42 Glipizide (Glucotrol) 5 mg PO DAILY [facility] Stop: 06/25/18 08:59 Last Admin: 04/26/18 11:24 Dose: 5 mg Sodium Chloride (Nacl 0.45%) 1,000 mls @ 75 mls/hr IV .[id number] [facility] Stop: 06/24/18 07:29 Last Admin: 04/25/18 23:56 Dose: 75 mls/hr Piperacillin Sod/Tazobactam (Sod 3.375 gm/ Sodium Chloride) 50 mls @ 100 mls/ hr IV Q6H [facility] Stop: 06/24/18 11:59 Last Admin: 04/26/18 11:24 Dose: 100 mls/hr Insulin Aspart (Novolog Insulin Sliding Scale) 0 units SUBQ ACHS [facility]; Protocol Stop: 06/23/18 17:59 Last Admin: 04/26/18 11:32 Dose: Not Given Lactobacillus Rhamnosus (Culturelle 15b) 1 each PO DAILY [facility] Stop: 06/25/18 15:44 Lorazepam (Ativan) 2 mg IVP Q4HR PRN; Protocol PRN Reason: Agitation Stop: 06/24/18 09:26 Last Admin: 04/25/18 23:56 Dose: 2 mg Miscellaneous (Zosyn Iv Per Pharmacy) 1 ea [facility] PRN PRN PRN Reason: PROTOCOL Stop: 06/24/18 07:29 Morphine Sulfate (Morphine) 2 mg IVP Q4HR PRN PRN Reason: Abdominal Pain Stop: 06/24/18 07:09 Ondansetron HCl (Zofran) 4 mg IV Q6H PRN PRN Reason: Nausea / Vomiting Stop: 06/23/18 20:35 Last Admin: 04/25/18 13:54 Dose: 4 mg Pantoprazole Sodium (Protonix) 40 mg IVP DAILY [facility] Stop: 06/24/18 08:59 Last Admin: 04/26/18 09:29 Dose: 40 mg Sucralfate (Carafate) 1 gm PO QID [facility] Stop: 06/24/18 08:59 Last Admin: 04/26/18 13:02 Dose: Not Given General: Alert, Oriented x3, No acute distress HEENT: Atraumatic, PERRLA Neck: Supple Cardiovascular: Regular rate, Normal S1, Normal S2 Lungs: Clear to auscultation Abdomen: Bowel sounds, Soft Extremities: no Clubbing, no Cyanosis, no Edema Assessment/Plan - Assessment Assessment: Abd pain N/V Diarrhea - Plan Plan: 1. Abdominal pain Possibly gastroparesis better Cont PPi 2. Nausea and Vomiting Cont Zofran, , and PPI 3. Diarrhea mostly frequent BMs Trial of peptobismol and culturelle Stop álvaro
[2018-04-26] MEDS: Lactobacillus Rhamnosus GG 15 Billion CFU CAP.SPRINK PO SCH (16:28)
[2018-04-26] MEDS: Bismuth Subsalicylate 236mL PO PRN (16:50)
[2018-04-26] MEDS: Sodium Chloride 0.45% 1,000 ML IV SCH (17:00)
--- NOTE | 2018-04-27 00:06 | Progress Notes ---
DATE: UROLOGY PROGRESS NOTE SUBJECTIVE: The patient is without urinary complaints. He is more hungry and is asking for food. PHYSICAL EXAMINATION: VITAL SIGNS: Temperature 98.4, heart rate 96, and blood pressure 145/95. ABDOMEN: Soft, nondistended bladder, not tender. EXTREMITIES: No edema. He has had some diarrhea as well. GI has seen him and are treating him with proton pump inhibitors for his gastroparesis and Zofran for his nausea and Pepto-Bismol for his diarrhea. His white count is 9.9, much improved and hemoglobin 16. Sugar 213, 191, 240, and 254. Creatinine 1.1, BUN 20, and sodium 132. IMPRESSION: 1. Diabetes, slightly improved. 2. Diabetic ketoacidosis almost resolved. 3. Urinary retention, will require a trial of voiding and may be due to the neurogenic bladder. 4. Right hydronephrosis, will need followup ultrasound. JOB# [id number]
--- NOTE | 2018-04-27 01:09 | Progress Notes ---
DATE: 04/26/2018 PULMONARY AND CRITICAL CARE PROGRESS NOTE PROBLEMS: 1. Poorly-controlled diabetes mellitus. 2. Abdominal pain. SUBJECTIVE: The patient is sleeping, does not want to talk too much. No specific new symptoms. He is still not eating well. No respiratory or any other related active problem except for has still some diarrhea. PHYSICAL EXAMINATION: VITAL SIGNS: Temperature is 99.4, blood pressure 145/95, saturation 100% on room air. NECK: Veins not visualized. CHEST: Shows clear with diminished air entry. ABDOMEN: Soft, nontender. LABORATORY STUDIES: White count is 9.9, hemoglobin is 16 grams. The patient's ABG looks okay. Electrolytes are okay except for sugar on a higher side with magnesium 1.8. ASSESSMENT: The patient is clinically stable. Medically speaking, Respiratory murphy and Critical Care murphy, monitor and okay to get to Step Down. Diarrhea, question secondary to diabetic issue related to the colon, could not be totally ruled out. PLANS AND SUGGESTIONS: Discussed with the nursing staff. Okay to move to the regular floor. Okay Pulmonary/Critical Care murphy to be discharged. Oral hypoglycemic agent can be followed up as an outpatient by primary care physician and go from there. JOB# [id number]
[2018-04-27] MEDS: Sodium Chloride 0.45% 1,000 ML IV SCH ×2 (06:57→16:24)
[2018-04-27] MEDS: INSULIN ASPART SLIDING SCALE 100 UNITS/ML UNIT SUBQ SCH ×4 (07:03→20:04)
[2018-04-27] MEDS: Lactobacillus Rhamnosus GG 15 Billion CFU CAP.SPRINK PO SCH (08:13)
[2018-04-27 08:30] LABS: ALB/GLOB RATIO 1.5 (1.0-1.8); ALBUMIN 3.6 gm/dL (4.2-5.5); ALKALINE PHOSPHATASE 48 U/L (34-104); ANION GAP 19.3 (7.0-16.0); BILIRUBIN,TOTAL 0.8 mg/dL (0.3-1.0); BUN - UREA NITROGEN 17 mg/dL (7-25); CALCIUM SERUM 8.8 mg/dL (8.6-10.3); CARBON DIOXIDE 19.6 mEq/L (21.0-31.0); CHLORIDE 96 mEq/L (98-107); CREATININE - SERUM 1.1 mg/dL (0.7-1.3); GFR AFRICAN-AMERICAN > 60.0 ml/min (>90); GFR NON AFRICAN-AMERICAN > 60.0 ml/min; GLUCOSE 314 mg/dL (70-105); SGOT 13 U/L (13-39); SGPT/ALT 21 U/L (7-52); SODIUM SERUM 132 mEq/L (136-145)
[2018-04-27] MEDS ORDERED: Diphenoxylate/Atropine 2.5mg Tab PO PRN (08:53)
--- NOTE | 2018-04-27 08:55 | General Progress Note ---
Subjective - Review of Systems Service Date: 04/27/18 Subjective: Patient was seen this morning. complains of loose bowel movement. on liquid diet for now. Objective - Results Result Diagrams: 04/26/18 04:28 04/26/18 04:28 Recent Labs: Laboratory Last Values WBC 9.9 Th/cmm (4.8-10.8) D 04/26/18 04:28 RBC 5.65 Mil/cmm (4.30-5.70) 04/26/18 04:28 Hgb 16.0 gm/dL (12-16) 04/26/18 04:28 Hct 48.1 % (41.0-60) 04/26/18 04:28 MCV 85.1 fl (80-99) 04/26/18 04:28 MCH 28.3 pg (26.0-30.0) 04/26/18 04:28 MCHC Differential 33.2 pg (28.0-36.0) 04/26/18 04:28 RDW 12.1 % (11.5-20.0) 04/26/18 04:28 Plt Count 205 Th/cmm (150-400) 04/26/18 04:28 MPV 8.9 fl 04/26/18 04:28 Neutrophils % 82.7 % (40.0-80.0) H 04/26/18 04:28 Lymphocytes % 11.8 % (20.0-50.0) L 04/26/18 04:28 Monocytes % 5.1 % (2.0-10.0) 04/26/18 04:28 Eosinophils % 0.3 % (0.0-5.0) 04/26/18 04:28 Basophils % 0.1 % (0.0-2.0) 04/26/18 04:28 Specimen Source Arterial 04/26/18 09:36 Sample Site Right Radial 04/26/18 09:36 pH 7.38 (7.35-7.45) 04/26/18 09:36 pCO2 35.0 mmHg (35.0-45.0) 04/26/18 09:36 pO2 90.0 mmHg (80.0-100.0) 04/26/18 09:36 HCO3 22.0 mEq/L (20.0-26.0) 04/26/18 09:36 Base Excess -3.8 mEq/L (-3.0-3.0) L 04/26/18 09:36 O2 Saturation 97.0 % (92.0-100.0) 04/26/18 09:36 Davi Test Positive 04/26/18 09:36 Vent Rate N/A 04/26/18 09:36 Inspired O2 21 10 09:36 Tidal Volume N/A 04/26/18 09:36 PEEP N/A 04/26/18 09:36 Pressure (ins/psv/peep) N/A 04/26/18 09:36 Critical Value DM 04/26/18 09:36 Sodium 132 mEq/L (136-145) L 04/26/18 04:28 Potassium 3.5 mEq/L (3.5-5.1) 04/26/18 04:28 Chloride 98 mEq/L (98-107) 04/26/18 04:28 Carbon Dioxide 18.6 mEq/L (21.0-31.0) L 04/26/18 04:28 Anion Gap 18.9 (7.0-16.0) H 04/26/18 04:28 BUN 20 mg/dL (7-25) 04/26/18 04:28 Creatinine 1.1 mg/dL (0.7-1.3) 04/26/18 04:28 Est GFR ( Amer) > 60.0 ml/min (>90) 04/26/18 04:28 Est GFR (Non-Af Amer) > 60.0 ml/min 04/26/18 04:28 BUN/Creatinine Ratio 18.2 04/26/18 04:28 Glucose 269 mg/dL (70-105) H 04/26/18 04:28 POC Glucose 213 MG/DL (70 - 105) H 04/26/18 20:49 Whole Bld Lactic Acid 1.45 mmol/L (0.60-1.99) 04/24/18 14:24 Calcium 9.3 mg/dL (8.6-10.3) 04/26/18 04:28 Phosphorus 2.8 mg/dL (2.5-5.0) 04/25/18 04:50 Magnesium 1.8 mg/dL (1.9-2.7) L 04/26/18 04:28 Total Bilirubin 0.7 mg/dL (0.3-1.0) 04/26/18 04:28 Direct Bilirubin 0.15 mg/dL (0.0-0.2) 04/26/18 04:28 AST 12 U/L (13-39) L 04/26/18 04:28 ALT 23 U/L (7-52) 04/26/18 04:28 Alkaline Phosphatase 54 U/L (34-104) 04/26/18 04:28 Ammonia 50 umol/L (16-53) 04/26/18 04:58 Troponin I 0.01 ng/mL (0.01-0.05) 04/24/18 12:30 Total Protein 6.5 gm/dL (6.0-8.3) 04/26/18 04:28 Albumin 4.1 gm/dL (4.2-5.5) L 04/26/18 04:28 Globulin 2.4 gm/dL 04/26/18 04:28 Albumin/Globulin Ratio 1.7 (1.0-1.8) 04/26/18 04:28 Amylase 30 U/L (29-103) 04/24/18 12:30 Lipase 3 U/L (11-82) L 04/24/18 12:30 TSH 1.56 uIU/ml (0.34-5.60) 04/26/18 04:58 Urine Source CATH 04/24/18 18:30 Urine Color YELLOW 04/24/18 18:30 Urine Clarity CLEAR (CLEAR) 04/24/18 18:30 Urine pH 5.5 (4.6 - 8.0) 04/24/18 18:30 Ur Specific [place] 1.025 (1.005-1.030) 04/24/18 18:30 Urine Protein TRACE mg/dL (NEGATIVE) 04/24/18 18:30 Urine Glucose (UA) >=1000 mg/dL (NEGATIVE) H 04/24/18 18:30 Urine Ketones >=80 mg/dL (NEGATIVE) H 04/24/18 18:30 Urine Blood SMALL (NEGATIVE) H 04/24/18 18:30 Urine Nitrate NEGATIVE (NEGATIVE) 04/24/18 18:30 Urine Bilirubin NEGATIVE (NEGATIVE) 04/24/18 18:30 Urine Urobilinogen 0.2 E.U./dL (0.2 - 1.0) 04/24/18 18:30 Ur Leukocyte Esterase NEGATIVE (NEGATIVE) 04/24/18 18:30 Urine RBC NONE SEEN /hpf (0-5) 04/24/18 18:30 Urine WBC 2-5 /hpf (0-5) 04/24/18 18:30 Ur Epithelial Cells NONE SEEN /lpf (FEW) 04/24/18 18:30 Urine Bacteria FEW /hpf (NONE SEEN) 04/24/18 18:30 Stool Occult Blood NEGATIVE (NEGATIVE) 04/26/18 09:45 Urine Opiates Screen NEGATIVE (NEGATIVE) 04/24/18 18:30 Urine Methadone Screen NEGATIVE (NEGATIVE) 04/24/18 18:30 Ur Barbiturates Screen NEGATIVE (NEGATIVE) 04/24/18 18:30 Ur Tricyclics Screen NEGATIVE (NEGATIVE) 04/24/18 18:30 Ur Phencyclidine Scrn NEGATIVE (NEGATIVE) 04/24/18 18:30 Amphetamines Screen NEGATIVE (NEGATIVE) 04/24/18 18:30 U Methamphetamines Scrn NEGATIVE (NEGATIVE) 04/24/18 18:30 U Benzodiazepines Scrn NEGATIVE (NEGATIVE) 04/24/18 18:30 U Cocaine Metab Screen NEGATIVE (NEGATIVE) 04/24/18 18:30 U Cannabinoids Screen NEGATIVE (NEGATIVE) 04/24/18 18:30 Blood Type O POSITIVE 04/24/18 12:30 Antibody Screen NEGATIVE 04/24/18 12:30 - Physical Exam Vitals and I&O: Vital Signs Temp 98.6 F 04/27/18 02:44 Pulse 99 04/27/18 07:00 Resp 16 04/27/18 07:00 BP 132/87 04/27/18 07:00 Pulse Ox 99 04/27/18 07:00 Intake & Output 04/26/18 04/27/18 04/27/18 18:59 06:59 18:59 Intake Total 1550 1100 250 Output Total 1600 1500 Balance -50 1100 -1250 Weight (lbs) 59.421 kg 58.967 kg Intake: Intake, IV Amount 1100 1100 Piperacillin Sodium/ 100 100 Tazobact 3.375 gm In Sodium Chloride 0.9% 50 ml @ 100 mls/hr IV Q6H [facility] Rx#:[id number] Sodium Chloride 0.45% 1, 1000 1000 000 ml @ 75 mls/hr IV . [id number] [facility] Rx#:[id number] Oral 450 250 Output: Urine 1600 1500 Other: # Bowel Movements 8 2 Stool Characteristics Liquid Liquid Black Brown Weight Source Bedscale Bedscale Active Medications: Current Medications Acetaminophen (Tylenol) 650 mg PO Q6H PRN PRN Reason: Pain or Fever >101 Stop: 06/23/18 20:38 Last Admin: 04/26/18 11:29 Dose: 650 mg Bismuth Subsalicylate (Pepto-Bismol) 30 ml PO Q6HRT PRN PRN Reason: GI DISTRESS Stop: 06/25/18 15:42 Last Admin: 04/26/18 16:50 Dose: 30 ml Glipizide (Glucotrol) 5 mg PO DAILY [facility] Stop: 06/25/18 08:59 Last Admin: 04/27/18 08:14 Dose: 5 mg Sodium Chloride (Nacl 0.45%) 1,000 mls @ 75 mls/hr IV .[id number] [facility] Stop: 06/24/18 07:29 Last Admin: 04/27/18 06:57 Dose: 75 mls/hr Piperacillin Sod/Tazobactam (Sod 3.375 gm/ Sodium Chloride) 50 mls @ 100 mls/ hr IV Q6H [facility] Stop: 06/24/18 11:59 Last Infusion: 04/27/18 05:50 Dose: Infused Insulin Aspart (Novolog Insulin Sliding Scale) 0 units SUBQ ACHS [facility]; Protocol Stop: 06/23/18 17:59 Last Admin: 04/27/18 07:03 Dose: 7 units Lactobacillus Rhamnosus (Culturelle 15b) 1 each PO DAILY [facility] Stop: 06/25/18 15:44 Last Admin: 04/27/18 08:13 Dose: 1 each Lorazepam (Ativan) 2 mg IVP Q4HR PRN; Protocol PRN Reason: Agitation Stop: 06/24/18 09:26 Last Admin: 04/27/18 02:24 Dose: 2 mg Miscellaneous (Zosyn Iv Per Pharmacy) 1 ea MC PRN PRN PRN Reason: PROTOCOL Stop: 06/24/18 07:29 Morphine Sulfate (Morphine) 2 mg IVP Q4HR PRN PRN Reason: Abdominal Pain Stop: 06/24/18 07:09 Ondansetron HCl (Zofran) 4 mg IV Q6H PRN PRN Reason: Nausea / Vomiting Stop: 06/23/18 20:35 Last Admin: 04/26/18 21:05 Dose: 4 mg Pantoprazole Sodium (Protonix) 40 mg IVP DAILY [facility] Stop: 06/24/18 08:59 Last Admin: 04/27/18 08:13 Dose: 40 mg Sucralfate (Carafate) 1 gm PO QID [facility] Stop: 06/24/18 08:59 Last Admin: 04/27/18 08:13 Dose: 1 gm General: Alert, Oriented x3, No acute distress HEENT: Atraumatic, PERRLA Neck: Supple Cardiovascular: Regular rate, Normal S1, Normal S2 Lungs: Clear to auscultation Abdomen: Bowel sounds, Soft Extremities: no Clubbing, no Cyanosis, no Edema Assessment/Plan - Assessment Assessment: Hyperglycemia improved Diabetes Mellitus better controll diabetic ketoacidosis resolved Leukocytosis now normal urinary retention Splenomegaly diarrhea ... will dc zosyn iv. mild right hydronephrosis gastroparesis possible neurogenic bladder - Plan Plan: Patient to be admitted to ICU for close monitoringGI consult will start clear liquids and adv as tolerate will restart oral hypoglycemics. Accuchecks ac hs Medium dose insulin sliding scale lomotil PO Nutritional Asmnt/Malnutr-PDOC - Dietary Evaluation Malnutrition Findings (Please click <Entered> for more info): Nutritional Asmnt/Malnutrition Start: 04/25/18 16: 44 Text: Status: Complete Freq: Protocol: Document 04/25/18 16:44 MIGDALIA (Rec: 04/25/18 17:09 MIGDALIA ALVARENGA) Nutritional Asmnt/Malnutrition Patient General Information Nutritional Screening High Risk Diagnosis hyperglycemia, possible GI bleed Pertinent Medical Hx/Surgical Hx DM type II Subjective Information Pt was resting in ICU unit at time of visit. Per MD note, Pt 's aware of his diabetes, but has been non-compliant with his medications. Current Diet Order/ Nutrition Support NPO Pertinent Medications novolog, zosyn, reglan, zofran , protonix, piperacillin, Nacl 0.45% Pertinent Labs 04/25: glucose 282, Na 135, POC 217-260, Alb 4.0 04/24: glucose 470, Na 132, Cl 93, POC 250-426, Mg 1.8 Nutritional Hx/Data Height 1.73 m Height (Calculated Centimeters) 172.7 Current Weight (lbs) 59.829 kg Weight (Calculated Kilograms) 59.8 Weight (Calculated Grams) 20159.8 [place] Body Weight 154 lb Body Mass Index (BMI) 20.0 Weight Status Approriate GI Symptoms GI Symptoms Nausea Vomitting Last BM 04/24 Food Allergies No Skin Integrity/Comment: intact Estimated Nutritional Goals BEE in Kcals: Using Current wt Calories/Kcals/Kg 25-30 Kcals Calculated 3985-4514 Protein: Using Current wt Protein g/k.8-1 Protein Calculated 48-60 g Fluid: ml 6951-0932 (1 ml/kcal) Nutritional Problem 1. Problem Problem Altered nutrition related lab values Etiology hx of DM type II and non- compliance to medications Signs/Symptoms: glucose 282 and POC 260 Malnutrition Alert Is there a minimum of two criteria No selected? Query Text:Check all the applicable criteria. A minimum of two criteria are recommended for diagnosis of either severe or non-severe malnutrition. Malnutrition Related to Morbid Obesity Malnutrition related to morbid obesity No Intervention/Recommendation Comments 1. Monitor NPO status. Will provide nutrition education when oral diet started. 2. Monitor glucose labs. MD to manage insulin regimen. 3. F/U as high risk in 2-3 days, 04/27-04/28 Expected Outcomes/Goals Expected Outcomes/Goals 1. Start PO intake once able to and meet at least 75% of nutritional needs 2. labs to approach normal limits Reviewed by Debbie Brown RD
[2018-04-27 09:08] LABS: POTASSIUM SERUM 2.9 mEq/L (3.5-5.1)
[2018-04-27] MEDS ORDERED: KCL 20mEq/100mL Premix 20 MEQ/100 ML PIGGYBACK IV ONE (09:17)
[2018-04-27] MEDS: Bismuth Subsalicylate 236mL PO PRN (09:23)
--- NOTE | 2018-04-27 13:15 | Infectious Disease Prog Note ---
Infectious Disease Subjective - Review of Systems Service Date: 04/27/18 Subjective: No change, no fever. Infectious Disease Objective - Results Result Diagrams: 04/26/18 04:28 04/27/18 07:35 Recent Labs: Laboratory Last Values WBC 9.9 Th/cmm (4.8-10.8) D 04/26/18 04:28 RBC 5.65 Mil/cmm (4.30-5.70) 04/26/18 04:28 Hgb 16.0 gm/dL (12-16) 04/26/18 04:28 Hct 48.1 % (41.0-60) 04/26/18 04:28 MCV 85.1 fl (80-99) 04/26/18 04:28 MCH 28.3 pg (26.0-30.0) 04/26/18 04:28 MCHC Differential 33.2 pg (28.0-36.0) 04/26/18 04:28 RDW 12.1 % (11.5-20.0) 04/26/18 04:28 Plt Count 205 Th/cmm (150-400) 04/26/18 04:28 MPV 8.9 fl 04/26/18 04:28 Neutrophils % 82.7 % (40.0-80.0) H 04/26/18 04:28 Lymphocytes % 11.8 % (20.0-50.0) L 04/26/18 04:28 Monocytes % 5.1 % (2.0-10.0) 04/26/18 04:28 Eosinophils % 0.3 % (0.0-5.0) 04/26/18 04:28 Basophils % 0.1 % (0.0-2.0) 04/26/18 04:28 Specimen Source Arterial 04/26/18 09:36 Sample Site Right Radial 04/26/18 09:36 pH 7.38 (7.35-7.45) 04/26/18 09:36 pCO2 35.0 mmHg (35.0-45.0) 04/26/18 09:36 pO2 90.0 mmHg (80.0-100.0) 04/26/18 09:36 HCO3 22.0 mEq/L (20.0-26.0) 04/26/18 09:36 Base Excess -3.8 mEq/L (-3.0-3.0) L 04/26/18 09:36 O2 Saturation 97.0 % (92.0-100.0) 04/26/18 09:36 Davi Test Positive 04/26/18 09:36 Vent Rate N/A 04/26/18 09:36 Inspired O2 21 04/26/18 09:36 Tidal Volume N/A 04/26/18 09:36 PEEP N/A 04/26/18 09:36 Pressure (ins/psv/peep) N/A 04/26/18 09:36 Critical Value DM 04/26/18 09:36 Sodium 132 mEq/L (136-145) L 04/27/18 07:35 Potassium 2.9 mEq/L (3.5-5.1) L* 04/27/18 07:35 Chloride 96 mEq/L (98-107) L 04/27/18 07:35 Carbon Dioxide 19.6 mEq/L (21.0-31.0) L 04/27/18 07:35 Anion Gap 19.3 (7.0-16.0) H 04/27/18 07:35 BUN 17 mg/dL (7-25) 04/27/18 07:35 Creatinine 1.1 mg/dL (0.7-1.3) 04/27/18 07:35 Est GFR ( Amer) > 60.0 ml/min (>90) 04/27/18 07:35 Est GFR (Non-Af Amer) > 60.0 ml/min 04/27/18 07:35 BUN/Creatinine Ratio 15.5 04/27/18 07:35 Glucose 314 mg/dL (70-105) H 04/27/18 07:35 POC Glucose 266 MG/DL (70 - 105) H 04/27/18 12:22 Whole Bld Lactic Acid 1.45 mmol/L (0.60-1.99) 04/24/18 14:24 Calcium 8.8 mg/dL (8.6-10.3) 04/27/18 07:35 Phosphorus 2.8 mg/dL (2.5-5.0) 04/25/18 04:50 Magnesium 1.8 mg/dL (1.9-2.7) L 04/26/18 04:28 Total Bilirubin 0.8 mg/dL (0.3-1.0) 04/27/18 07:35 Direct Bilirubin 0.15 mg/dL (0.0-0.2) 04/26/18 04:28 AST 13 U/L (13-39) 04/27/18 07:35 ALT 21 U/L (7-52) 04/27/18 07:35 Alkaline Phosphatase 48 U/L (34-104) 04/27/18 07:35 Ammonia 50 umol/L (16-53) 04/26/18 04:58 Troponin I 0.01 ng/mL (0.01-0.05) 04/24/18 12:30 Total Protein 6.0 gm/dL (6.0-8.3) 04/27/18 07:35 Albumin 3.6 gm/dL (4.2-5.5) L 04/27/18 07:35 Globulin 2.4 gm/dL 04/27/18 07:35 Albumin/Globulin Ratio 1.5 (1.0-1.8) 04/27/18 07:35 Amylase 30 U/L (29-103) 04/24/18 12:30 Lipase 3 U/L (11-82) L 04/24/18 12:30 TSH 1.56 uIU/ml (0.34-5.60) 04/26/18 04:58 Urine Source CATH 04/24/18 18:30 Urine Color YELLOW 04/24/18 18:30 Urine Clarity CLEAR (CLEAR) 04/24/18 18:30 Urine pH 5.5 (4.6 - 8.0) 04/24/18 18:30 Ur Specific [place] 1.025 (1.005-1.030) 04/24/18 18:30 Urine Protein TRACE mg/dL (NEGATIVE) 04/24/18 18:30 Urine Glucose (UA) >=1000 mg/dL (NEGATIVE) H 04/24/18 18:30 Urine Ketones >=80 mg/dL (NEGATIVE) H 04/24/18 18:30 Urine Blood SMALL (NEGATIVE) H 04/24/18 18:30 Urine Nitrate NEGATIVE (NEGATIVE) 04/24/18 18:30 Urine Bilirubin NEGATIVE (NEGATIVE) 04/24/18 18:30 Urine Urobilinogen 0.2 E.U./dL (0.2 - 1.0) 04/24/18 18:30 Ur Leukocyte Esterase NEGATIVE (NEGATIVE) 04/24/18 18:30 Urine RBC NONE SEEN /hpf (0-5) 04/24/18 18:30 Urine WBC 2-5 /hpf (0-5) 04/24/18 18:30 Ur Epithelial Cells NONE SEEN /lpf (FEW) 04/24/18 18:30 Urine Bacteria FEW /hpf (NONE SEEN) 04/24/18 18:30 Stool Occult Blood NEGATIVE (NEGATIVE) 04/26/18 09:45 Urine Opiates Screen NEGATIVE (NEGATIVE) 04/24/18 18:30 Urine Methadone Screen NEGATIVE (NEGATIVE) 04/24/18 18:30 Ur Barbiturates Screen NEGATIVE (NEGATIVE) 04/24/18 18:30 Ur Tricyclics Screen NEGATIVE (NEGATIVE) 04/24/18 18:30 Ur Phencyclidine Scrn NEGATIVE (NEGATIVE) 04/24/18 18:30 Amphetamines Screen NEGATIVE (NEGATIVE) 04/24/18 18:30 U Methamphetamines Scrn NEGATIVE (NEGATIVE) 04/24/18 18:30 U Benzodiazepines Scrn NEGATIVE (NEGATIVE) 04/24/18 18:30 U Cocaine Metab Screen NEGATIVE (NEGATIVE) 04/24/18 18:30 U Cannabinoids Screen NEGATIVE (NEGATIVE) 04/24/18 18:30 Blood Type O POSITIVE 04/24/18 12:30 Antibody Screen NEGATIVE 04/24/18 12:30 - Physical Exam Vitals and I&O: Vital Signs Temp 98.6 F 04/27/18 02:44 Pulse 99 04/27/18 07:00 Resp 17 04/27/18 10:00 BP 132/87 04/27/18 07:00 Pulse Ox 99 04/27/18 07:00 Intake & Output 04/26/18 04/27/18 04/27/18 18:59 06:59 18:59 Intake Total 1550 1100 250 Output Total 1600 1500 Balance -50 1100 -1250 Weight (lbs) 59.421 kg 58.967 kg Intake: Intake, IV Amount 1100 1100 Piperacillin Sodium/ 100 100 Tazobact 3.375 gm In Sodium Chloride 0.9% 50 ml @ 100 mls/hr IV Q6H [facility] Rx#:[id number] Sodium Chloride 0.45% 1, 1000 1000 000 ml @ 75 mls/hr IV . [id number] [facility] Rx#:[id number] Oral 450 250 Output: Urine 1600 1500 Other: # Bowel Movements 8 2 Stool Characteristics Liquid Liquid Black Brown [facility] Active Medications: Current Medications Acetaminophen (Tylenol) 650 mg PO Q6H PRN PRN Reason: Pain or Fever >101 Stop: 06/23/18 20:38 Last Admin: 04/26/18 11:29 Dose: 650 mg Bismuth Subsalicylate (Pepto-Bismol) 30 ml PO Q6HRT PRN PRN Reason: GI DISTRESS Stop: 06/25/18 15:42 Last Admin: 04/27/18 09:23 Dose: 30 ml Diphenoxylate HCl/Atropine (Lomotil) 1 tab PO TID PRN PRN Reason: Diarrhea Stop: 06/26/18 08:52 Glipizide (Glucotrol) 5 mg PO DAILY [facility] [place] Stop: 06/25/18 08:59 Last Admin: 04/27/18 08:14 Dose: 5 mg Sodium Chloride (Nacl 0.45%) 1,000 mls @ 75 mls/hr IV .[id number] [facility] [place] Stop: 06/24/18 07:29 Last Admin: 04/27/18 06:57 Dose: 75 mls/hr Insulin Aspart (Novolog Insulin Sliding Scale) 0 units SUBQ ACHS [facility] [place]; Protocol Stop: 06/23/18 17:59 Last Admin: 04/27/18 12:28 Dose: 7 units Lactobacillus Rhamnosus (Culturelle 15b) 1 each PO DAILY [facility] [place] Stop: 06/25/18 15:44 Last Admin: 04/27/18 08:13 Dose: 1 each Lorazepam (Ativan) 2 mg IVP Q4HR PRN; Protocol PRN Reason: Agitation Stop: 06/24/18 09:26 Last Admin: 04/27/18 02:24 Dose: 2 mg Morphine Sulfate (Morphine) 2 mg IVP Q4HR PRN PRN Reason: Abdominal Pain Stop: 06/24/18 07:09 Ondansetron HCl (Zofran) 4 mg IV Q6H PRN PRN Reason: Nausea / Vomiting Stop: 06/23/18 20:35 Last Admin: 04/26/18 21:05 Dose: 4 mg Pantoprazole Sodium (Protonix) 40 mg IVP DAILY [facility] [place] Stop: 06/24/18 08:59 Last Admin: 04/27/18 08:13 Dose: 40 mg Sucralfate (Carafate) 1 gm PO QID [facility] Stop: 06/24/18 08:59 Last Admin: 04/27/18 12:27 Dose: 1 gm General: no acute distress, well developed, well nourished HEENT: atraumatic, normocephalic, PERRLA, EOMI Neck: supple, no thyromegaly Cardiovascular: S1S2, regular Lungs: clear to auscultation bilaterally, clear to percussion Abdomen: soft, no tender, no distended, no mass Extremities: no cyanosis, no clubbing, no edema Neurological: awake, alert, oriented Skin: intact Infectious Disease Assmt/Plan - Assessment Assessment: 1. Leukocytosis reactive. 2. Lactic acidosis. Improved. 3. DM2. 4. Right sided hydronephrosis 5. Azotemia improving. - Plan Plan: off antibiotics. Nutritional Asmnt/Malnutr-PDOC - Dietary Evaluation Malnutrition Findings (Please click <Entered> for more info): Nutritional Asmnt/Malnutrition Start: 04/25/18 16: 44 Text: Status: Complete Freq: Protocol: Document 04/25/18 16:44 MIGDALIA (Rec: 04/25/18 17:09 MIGDALIA ALVARENGA) Nutritional Asmnt/Malnutrition Patient General Information Nutritional Screening High Risk Diagnosis hyperglycemia, possible GI bleed Pertinent Medical Hx/Surgical Hx DM type II Subjective Information Pt was resting in ICU unit at time of visit. Per MD note, Pt 's aware of his diabetes, but has been non-compliant with his medications. Current Diet Order/ Nutrition Support NPO Pertinent Medications novolog, zosyn, reglan, zofran , protonix, piperacillin, Nacl 0.45% Pertinent Labs 04/25: glucose 282, Na 135, POC 217-260, Alb 4.0 04/24: glucose 470, Na 132, Cl 93, POC 250-426, Mg 1.8 Nutritional Hx/Data Height 1.73 m Height (Calculated Centimeters) 172.7 Current Weight (lbs) 59.829 kg Weight (Calculated Kilograms) 59.8 Weight (Calculated Grams) 66566.8 [place] Body Weight 154 lb Body Mass Index (BMI) 20.0 Weight Status Approriate GI Symptoms GI Symptoms Nausea Vomitting Last BM 04/24 Food Allergies No Skin Integrity/Comment: intact Estimated Nutritional Goals BEE in Kcals: Using Current wt Calories/Kcals/Kg 25-30 Kcals Calculated 4789-5279 Protein: Using Current wt Protein g/k.8-1 Protein Calculated 48-60 g Fluid: ml 2996-3509 (1 ml/kcal) Nutritional Problem 1. Problem Problem Altered nutrition related lab values Etiology hx of DM type II and non- compliance to medications Signs/Symptoms: glucose 282 and POC 260 Malnutrition Alert Is there a minimum of two criteria No selected? Query Text:Check all the applicable criteria. A minimum of two criteria are recommended for diagnosis of either severe or non-severe malnutrition. Malnutrition Related to Morbid Obesity Malnutrition related to morbid obesity No Intervention/Recommendation Comments 1. Monitor NPO status. Will provide nutrition education when oral diet started. 2. Monitor glucose labs. MD to manage insulin regimen. 3. F/U as high risk in 2-3 days, 04/27-04/28 Expected Outcomes/Goals Expected Outcomes/Goals 1. Start PO intake once able to and meet at least 75% of nutritional needs 2. labs to approach normal limits Reviewed by Debbie Brown RD
[2018-04-27] MEDS ORDERED: Potassium Chloride Elixir 20 mEq /15 mL UDC GT ONE (13:16)
--- NOTE | 2018-04-27 17:15 | GI Progress Note ---
Subjective - Review of Systems Service Date: 04/27/18 Events since last encounter: still with diarrhea but better Subjective: C/O diarrhea Objective - Results Result Diagrams: 04/26/18 04:28 04/27/18 07:35 Recent Labs: Laboratory Last Values WBC 9.9 Th/cmm (4.8-10.8) D 04/26/18 04:28 RBC 5.65 Mil/cmm (4.30-5.70) 04/26/18 04:28 Hgb 16.0 gm/dL (12-16) 04/26/18 04:28 Hct 48.1 % (41.0-60) 04/26/18 04:28 MCV 85.1 fl (80-99) 04/26/18 04:28 MCH 28.3 pg (26.0-30.0) 04/26/18 04:28 MCHC Differential 33.2 pg (28.0-36.0) 04/26/18 04:28 RDW 12.1 % (11.5-20.0) 04/26/18 04:28 Plt Count 205 Th/cmm (150-400) 04/26/18 04:28 MPV 8.9 fl 04/26/18 04:28 Neutrophils % 82.7 % (40.0-80.0) H 04/26/18 04:28 Lymphocytes % 11.8 % (20.0-50.0) L 04/26/18 04:28 Monocytes % 5.1 % (2.0-10.0) 04/26/18 04:28 Eosinophils % 0.3 % (0.0-5.0) 04/26/18 04:28 Basophils % 0.1 % (0.0-2.0) 04/26/18 04:28 Specimen Source Arterial 04/26/18 09:36 Sample Site Right Radial 04/26/18 09:36 pH 7.38 (7.35-7.45) 04/26/18 09:36 pCO2 35.0 mmHg (35.0-45.0) 04/26/18 09:36 pO2 90.0 mmHg (80.0-100.0) 04/26/18 09:36 HCO3 22.0 mEq/L (20.0-26.0) 04/26/18 09:36 Base Excess -3.8 mEq/L (-3.0-3.0) L 04/26/18 09:36 O2 Saturation 97.0 % (92.0-100.0) 04/26/18 09:36 Davi Test Positive 04/26/18 09:36 Vent Rate N/A 04/26/18 09:36 Inspired O2 21 04/26/18 09:36 Tidal Volume N/A 04/26/18 09:36 PEEP N/A 04/26/18 09:36 Pressure (ins/psv/peep) N/A 04/26/18 09:36 Critical Value DM 04/26/18 09:36 Sodium 132 mEq/L (136-145) L 04/27/18 07:35 Potassium 2.9 mEq/L (3.5-5.1) L* 04/27/18 07:35 Chloride 96 mEq/L (98-107) L 04/27/18 07:35 Carbon Dioxide 19.6 mEq/L (21.0-31.0) L 04/27/18 07:35 Anion Gap 19.3 (7.0-16.0) H 04/27/18 07:35 BUN 17 mg/dL (7-25) 04/27/18 07:35 Creatinine 1.1 mg/dL (0.7-1.3) 04/27/18 07:35 Est GFR ( Amer) > 60.0 ml/min (>90) 04/27/18 07:35 Est GFR (Non-Af Amer) > 60.0 ml/min 04/27/18 07:35 BUN/Creatinine Ratio 15.5 04/27/18 07:35 Glucose 314 mg/dL (70-105) H 04/27/18 07:35 POC Glucose 207 MG/DL (70 - 105) H 04/27/18 16:18 Whole Bld Lactic Acid 1.45 mmol/L (0.60-1.99) 04/24/18 14:24 Calcium 8.8 mg/dL (8.6-10.3) 04/27/18 07:35 Phosphorus 2.8 mg/dL (2.5-5.0) 04/25/18 04:50 Magnesium 1.8 mg/dL (1.9-2.7) L 04/26/18 04:28 Total Bilirubin 0.8 mg/dL (0.3-1.0) 04/27/18 07:35 Direct Bilirubin 0.15 mg/dL (0.0-0.2) 04/26/18 04:28 AST 13 U/L (13-39) 04/27/18 07:35 ALT 21 U/L (7-52) 04/27/18 07:35 Alkaline Phosphatase 48 U/L (34-104) 04/27/18 07:35 Ammonia 50 umol/L (16-53) 04/26/18 04:58 Troponin I 0.01 ng/mL (0.01-0.05) 04/24/18 12:30 Total Protein 6.0 gm/dL (6.0-8.3) 04/27/18 07:35 Albumin 3.6 gm/dL (4.2-5.5) L 04/27/18 07:35 Globulin 2.4 gm/dL 04/27/18 07:35 Albumin/Globulin Ratio 1.5 (1.0-1.8) 04/27/18 07:35 Amylase 30 U/L (29-103) 04/24/18 12:30 Lipase 3 U/L (11-82) L 04/24/18 12:30 TSH 1.56 uIU/ml (0.34-5.60) 04/26/18 04:58 Urine Source CATH 04/24/18 18:30 Urine Color YELLOW 04/24/18 18:30 Urine Clarity CLEAR (CLEAR) 04/24/18 18:30 Urine pH 5.5 (4.6 - 8.0) 04/24/18 18:30 Ur Specific [place] 1.025 (1.005-1.030) 04/24/18 18:30 Urine Protein TRACE mg/dL (NEGATIVE) 04/24/18 18:30 Urine Glucose (UA) >=1000 mg/dL (NEGATIVE) H 04/24/18 18:30 Urine Ketones >=80 mg/dL (NEGATIVE) H 04/24/18 18:30 Urine Blood SMALL (NEGATIVE) H 04/24/18 18:30 Urine Nitrate NEGATIVE (NEGATIVE) 04/24/18 18:30 Urine Bilirubin NEGATIVE (NEGATIVE) 04/24/18 18:30 Urine Urobilinogen 0.2 E.U./dL (0.2 - 1.0) 04/24/18 18:30 Ur Leukocyte Esterase NEGATIVE (NEGATIVE) 04/24/18 18:30 Urine RBC NONE SEEN /hpf (0-5) 04/24/18 18:30 Urine WBC 2-5 /hpf (0-5) 04/24/18 18:30 Ur Epithelial Cells NONE SEEN /lpf (FEW) 04/24/18 18:30 Urine Bacteria FEW /hpf (NONE SEEN) 04/24/18 18:30 Stool Occult Blood NEGATIVE (NEGATIVE) 04/26/18 09:45 Urine Opiates Screen NEGATIVE (NEGATIVE) 04/24/18 18:30 Urine Methadone Screen NEGATIVE (NEGATIVE) 04/24/18 18:30 Ur Barbiturates Screen NEGATIVE (NEGATIVE) 04/24/18 18:30 Ur Tricyclics Screen NEGATIVE (NEGATIVE) 04/24/18 18:30 Ur Phencyclidine Scrn NEGATIVE (NEGATIVE) 04/24/18 18:30 Amphetamines Screen NEGATIVE (NEGATIVE) 04/24/18 18:30 U Methamphetamines Scrn NEGATIVE (NEGATIVE) 04/24/18 18:30 U Benzodiazepines Scrn NEGATIVE (NEGATIVE) 04/24/18 18:30 U Cocaine Metab Screen NEGATIVE (NEGATIVE) 04/24/18 18:30 U Cannabinoids Screen NEGATIVE (NEGATIVE) 04/24/18 18:30 Blood Type O POSITIVE 04/24/18 12:30 Antibody Screen NEGATIVE 04/24/18 12:30 - Physical Exam Vitals and I&O: Vital Signs Temp 97.8 F 04/27/18 15:00 Pulse 89 04/27/18 15:00 Resp 14 04/27/18 15:00 BP 116/72 04/27/18 15:00 Pulse Ox 100 04/27/18 15:00 Intake & Output 04/26/18 04/27/18 04/27/18 18:59 06:59 18:59 Intake Total 1550 1100 958.75 Output Total 1600 1500 Balance -50 1100 -541.25 Weight (lbs) 59.421 kg 58.967 kg Intake: Intake, IV Amount 1100 1100 708.75 Piperacillin Sodium/ 100 100 Tazobact 3.375 gm In Sodium Chloride 0.9% 50 ml @ 100 mls/hr IV Q6H [facility] Rx#:[id number] Sodium Chloride 0.45% 1, 1000 1000 708.75 000 ml @ 75 mls/hr IV . [id number] [facility] Rx#:[id number] Oral 450 250 Output: Urine 1600 1500 Other: # Bowel Movements 8 2 Stool Characteristics Liquid Liquid Black Brown [facility] Active Medications: Current Medications Acetaminophen (Tylenol) 650 mg PO Q6H PRN PRN Reason: Pain or Fever >101 Stop: 06/23/18 20:38 Last Admin: 04/26/18 11:29 Dose: 650 mg Bismuth Subsalicylate (Pepto-Bismol) 30 ml PO Q6HRT PRN PRN Reason: GI DISTRESS Stop: 06/25/18 15:42 Last Admin: 04/27/18 09:23 Dose: 30 ml Diphenoxylate HCl/Atropine (Lomotil) 1 tab PO TID PRN PRN Reason: Diarrhea Stop: 06/26/18 08:52 Glipizide (Glucotrol) 5 mg PO DAILY [facility] Stop: 06/25/18 08:59 Last Admin: 04/27/18 08:14 Dose: 5 mg Sodium Chloride (Nacl 0.45%) 1,000 mls @ 75 mls/hr IV .[id number] [facility] Stop: 06/24/18 07:29 Last Admin: 04/27/18 16:24 Dose: 75 mls/hr Insulin Aspart (Novolog Insulin Sliding Scale) 0 units SUBQ ACHS [facility]; Protocol Stop: 06/23/18 17:59 Last Admin: 04/27/18 16:21 Dose: 5 units Lactobacillus Rhamnosus (Culturelle 15b) 1 each PO DAILY [facility] Stop: 06/25/18 15:44 Last Admin: 04/27/18 08:13 Dose: 1 each Lorazepam (Ativan) 2 mg IVP Q4HR PRN; Protocol PRN Reason: Agitation Stop: 06/24/18 09:26 Last Admin: 04/27/18 02:24 Dose: 2 mg Morphine Sulfate (Morphine) 2 mg IVP Q4HR PRN PRN Reason: Abdominal Pain Stop: 06/24/18 07:09 Ondansetron HCl (Zofran) 4 mg IV Q6H PRN PRN Reason: Nausea / Vomiting Stop: 06/23/18 20:35 Last Admin: 04/26/18 21:05 Dose: 4 mg Pantoprazole Sodium (Protonix) 40 mg IVP DAILY [facility] Stop: 06/24/18 08:59 Last Admin: 04/27/18 08:13 Dose: 40 mg Sucralfate (Carafate) 1 gm PO QID [facility] Stop: 06/24/18 08:59 Last Admin: 04/27/18 16:22 Dose: 1 gm General: Alert, Oriented x3, No acute distress HEENT: Atraumatic, PERRLA Neck: Supple Cardiovascular: Regular rate, Normal S1, Normal S2 Lungs: Clear to auscultation Abdomen: Bowel sounds, Soft Extremities: no Clubbing, no Cyanosis, no Edema Assessment/Plan - Assessment Assessment: Abd pain N/V Diarrhea - Plan Plan: 1. Abdominal pain Possibly gastroparesis better Cont PPi 2. Nausea and Vomiting Cont Zofran, , and PPI 3. Diarrhea seems better mostly frequent BMs Trial of peptobismol and culturelle Stop álvaro
[2018-04-28] MEDS: Sodium Chloride 0.45% 1,000 ML IV SCH (02:44)
[2018-04-28] MEDS: INSULIN ASPART SLIDING SCALE 100 UNITS/ML UNIT SUBQ SCH ×2 (06:42→11:42)
[2018-04-28] MEDS: Lactobacillus Rhamnosus GG 15 Billion CFU CAP.SPRINK PO SCH (08:04)
--- NOTE | 2018-04-28 08:38 | General Progress Note ---
Subjective - Review of Systems Service Date: 04/28/18 Subjective: Patient was seen this morning. now eating regular diet. diarrhea has improved. would like to go home. Objective - Results Result Diagrams: 04/26/18 04:28 04/27/18 07:35 Recent Labs: Laboratory Last Values WBC 9.9 Th/cmm (4.8-10.8) D 04/26/18 04:28 RBC 5.65 Mil/cmm (4.30-5.70) 04/26/18 04:28 Hgb 16.0 gm/dL (12-16) 04/26/18 04:28 Hct 48.1 % (41.0-60) 04/26/18 04:28 MCV 85.1 fl (80-99) 04/26/18 04:28 MCH 28.3 pg (26.0-30.0) 04/26/18 04:28 MCHC Differential 33.2 pg (28.0-36.0) 04/26/18 04:28 RDW 12.1 % (11.5-20.0) 04/26/18 04:28 Plt Count 205 Th/cmm (150-400) 04/26/18 04:28 MPV 8.9 fl 04/26/18 04:28 Neutrophils % 82.7 % (40.0-80.0) H 04/26/18 04:28 Lymphocytes % 11.8 % (20.0-50.0) L 04/26/18 04:28 Monocytes % 5.1 % (2.0-10.0) 04/26/18 04:28 Eosinophils % 0.3 % (0.0-5.0) 04/26/18 04:28 Basophils % 0.1 % (0.0-2.0) 04/26/18 04:28 Specimen Source Arterial 04/26/18 09:36 Sample Site Right Radial 04/26/18 09:36 pH 7.38 (7.35-7.45) 04/26/18 09:36 pCO2 35.0 mmHg (35.0-45.0) 04/26/18 09:36 pO2 90.0 mmHg (80.0-100.0) 04/26/18 09:36 HCO3 22.0 mEq/L (20.0-26.0) 04/26/18 09:36 Base Excess -3.8 mEq/L (-3.0-3.0) L 04/26/18 09:36 O2 Saturation 97.0 % (92.0-100.0) 04/26/18 09:36 Davi Test Positive 04/26/18 09:36 Vent Rate N/A 04/26/18 09:36 Inspired O2 21 04/26/18 09:36 Tidal Volume N/A 04/26/18 09:36 PEEP N/A 04/26/18 09:36 Pressure (ins/psv/peep) N/A 04/26/18 09:36 Critical Value DM 04/26/18 09:36 Sodium 132 mEq/L (136-145) L 04/27/18 07:35 Potassium 2.9 mEq/L (3.5-5.1) L* 04/27/18 07:35 Chloride 96 mEq/L (98-107) L 04/27/18 07:35 Carbon Dioxide 19.6 mEq/L (21.0-31.0) L 04/27/18 07:35 Anion Gap 19.3 (7.0-16.0) H 04/27/18 07:35 BUN 17 mg/dL (7-25) 04/27/18 07:35 Creatinine 1.1 mg/dL (0.7-1.3) 04/27/18 07:35 Est GFR ( Amer) > 60.0 ml/min (>90) 04/27/18 07:35 Est GFR (Non-Af Amer) > 60.0 ml/min 04/27/18 07:35 BUN/Creatinine Ratio 15.5 04/27/18 07:35 Glucose 314 mg/dL (70-105) H 04/27/18 07:35 POC Glucose 235 MG/DL (70 - 105) H 04/28/18 06:32 Whole Bld Lactic Acid 1.45 mmol/L (0.60-1.99) 04/24/18 14:24 Calcium 8.8 mg/dL (8.6-10.3) 04/27/18 07:35 Phosphorus 2.8 mg/dL (2.5-5.0) 04/25/18 04:50 Magnesium 1.8 mg/dL (1.9-2.7) L 04/26/18 04:28 Total Bilirubin 0.8 mg/dL (0.3-1.0) 04/27/18 07:35 Direct Bilirubin 0.15 mg/dL (0.0-0.2) 04/26/18 04:28 AST 13 U/L (13-39) 04/27/18 07:35 ALT 21 U/L (7-52) 04/27/18 07:35 Alkaline Phosphatase 48 U/L (34-104) 04/27/18 07:35 Ammonia 50 umol/L (16-53) 04/26/18 04:58 Troponin I 0.01 ng/mL (0.01-0.05) 04/24/18 12:30 Total Protein 6.0 gm/dL (6.0-8.3) 04/27/18 07:35 Albumin 3.6 gm/dL (4.2-5.5) L 04/27/18 07:35 Globulin 2.4 gm/dL 04/27/18 07:35 Albumin/Globulin Ratio 1.5 (1.0-1.8) 04/27/18 07:35 Amylase 30 U/L (29-103) 04/24/18 12:30 Lipase 3 U/L (11-82) L 04/24/18 12:30 TSH 1.56 uIU/ml (0.34-5.60) 04/26/18 04:58 Urine Source CATH 04/24/18 18:30 Urine Color YELLOW 04/24/18 18:30 Urine Clarity CLEAR (CLEAR) 04/24/18 18:30 Urine pH 5.5 (4.6 - 8.0) 04/24/18 18:30 Ur Specific [place] 1.025 (1.005-1.030) 04/24/18 18:30 Urine Protein TRACE mg/dL (NEGATIVE) 04/24/18 18:30 Urine Glucose (UA) >=1000 mg/dL (NEGATIVE) H 04/24/18 18:30 Urine Ketones >=80 mg/dL (NEGATIVE) H 04/24/18 18:30 Urine Blood SMALL (NEGATIVE) H 04/24/18 18:30 Urine Nitrate NEGATIVE (NEGATIVE) 04/24/18 18:30 Urine Bilirubin NEGATIVE (NEGATIVE) 04/24/18 18:30 Urine Urobilinogen 0.2 E.U./dL (0.2 - 1.0) 04/24/18 18:30 Ur Leukocyte Esterase NEGATIVE (NEGATIVE) 04/24/18 18:30 Urine RBC NONE SEEN /hpf (0-5) 04/24/18 18:30 Urine WBC 2-5 /hpf (0-5) 04/24/18 18:30 Ur Epithelial Cells NONE SEEN /lpf (FEW) 04/24/18 18:30 Urine Bacteria FEW /hpf (NONE SEEN) 04/24/18 18:30 Stool Occult Blood NEGATIVE (NEGATIVE) 04/26/18 09:45 Urine Opiates Screen NEGATIVE (NEGATIVE) 04/24/18 18:30 Urine Methadone Screen NEGATIVE (NEGATIVE) 04/24/18 18:30 Ur Barbiturates Screen NEGATIVE (NEGATIVE) 04/24/18 18:30 Ur Tricyclics Screen NEGATIVE (NEGATIVE) 04/24/18 18:30 Ur Phencyclidine Scrn NEGATIVE (NEGATIVE) 04/24/18 18:30 Amphetamines Screen NEGATIVE (NEGATIVE) 04/24/18 18:30 U Methamphetamines Scrn NEGATIVE (NEGATIVE) 04/24/18 18:30 U Benzodiazepines Scrn NEGATIVE (NEGATIVE) 04/24/18 18:30 U Cocaine Metab Screen NEGATIVE (NEGATIVE) 04/24/18 18:30 U Cannabinoids Screen NEGATIVE (NEGATIVE) 04/24/18 18:30 Blood Type O POSITIVE 04/24/18 12:30 Antibody Screen NEGATIVE 04/24/18 12:30 - Physical Exam Vitals and I&O: Vital Signs Temp 97.5 F 04/28/18 02:52 Pulse 96 04/28/18 02:52 Resp 15 04/28/18 06:00 BP 123/91 04/28/18 02:52 Pulse Ox 100 04/28/18 02:52 Intake & Output 04/27/18 04/28/18 04/28/18 18:59 06:59 18:59 Intake Total 2208.75 1075 Output Total 3300 1200 Balance -1091.25 -125 Weight (lbs) 58.06 kg 58.876 kg Intake: Intake, IV Amount 708.75 775 Sodium Chloride 0.45% 1, 708.75 775 000 ml @ 75 mls/hr IV . [id number] [facility] Rx#:[id number] Oral 1500 300 Output: Urine 3300 1200 Other: # Bowel Movements 2 Stool Characteristics [place] Weight Source Bedscale Bedscale Active Medications: Current Medications Acetaminophen (Tylenol) 650 mg PO Q6H PRN PRN Reason: Pain or Fever >101 Stop: 06/23/18 20:38 Last Admin: 04/26/18 11:29 Dose: 650 mg Bismuth Subsalicylate (Pepto-Bismol) 30 ml PO Q6HRT PRN PRN Reason: GI DISTRESS Stop: 06/25/18 15:42 Last Admin: 04/27/18 09:23 Dose: 30 ml Diphenoxylate HCl/Atropine (Lomotil) 1 tab PO TID PRN PRN Reason: Diarrhea Stop: 06/26/18 08:52 Glipizide (Glucotrol) 5 mg PO DAILY [facility] Stop: 06/25/18 08:59 Last Admin: 04/28/18 08:04 Dose: 5 mg Sodium Chloride (Nacl 0.45%) 1,000 mls @ 75 mls/hr IV .[id number] [facility] Stop: 06/24/18 07:29 Last Admin: 04/28/18 02:44 Dose: 75 mls/hr Insulin Aspart (Novolog Insulin Sliding Scale) 0 units SUBQ ACHS [facility]; Protocol Stop: 06/23/18 17:59 Last Admin: 04/28/18 06:42 Dose: 5 units Lactobacillus Rhamnosus (Culturelle 15b) 1 each PO DAILY [facility] Stop: 06/25/18 15:44 Last Admin: 04/28/18 08:04 Dose: 1 each Lorazepam (Ativan) 2 mg IVP Q4HR PRN; Protocol PRN Reason: Agitation Stop: 06/24/18 09:26 Last Admin: 04/27/18 02:24 Dose: 2 mg Morphine Sulfate (Morphine) 2 mg IVP Q4HR PRN PRN Reason: Abdominal Pain Stop: 06/24/18 07:09 Ondansetron HCl (Zofran) 4 mg IV Q6H PRN PRN Reason: Nausea / Vomiting Stop: 06/23/18 20:35 Last Admin: 04/26/18 21:05 Dose: 4 mg Pantoprazole Sodium (Protonix) 40 mg IVP DAILY [facility] Stop: 06/24/18 08:59 Last Admin: 04/28/18 08:04 Dose: 40 mg Sucralfate (Carafate) 1 gm PO QID [facility] Stop: 06/24/18 08:59 Last Admin: 04/28/18 08:04 Dose: Not Given General: Alert, Oriented x3, No acute distress HEENT: Atraumatic, PERRLA Neck: Supple Cardiovascular: Regular rate, Normal S1, Normal S2 Lungs: Clear to auscultation Abdomen: Bowel sounds, Soft Extremities: no Clubbing, no Cyanosis, no Edema Assessment/Plan - Assessment Assessment: Hyperglycemia improved Diabetes Mellitus better controll diabetic ketoacidosis resolved Leukocytosis now normal urinary retention Splenomegaly diarrhea ... will dc zosyn iv. mild right hydronephrosis gastroparesis possible neurogenic bladder hypokalemia...given Krider yesterday. check k+ this AM - Plan Plan: will discharge patient home today advised to follow up with his regular physician in 3-5 days. 1800 ada diet, exercise. Nutritional Asmnt/Malnutr-PDOC - Dietary Evaluation Malnutrition Findings (Please click <Entered> for more info): Nutritional Asmnt/Malnutrition Start: 04/25/18 16: 44 Text: Status: Complete Freq: Protocol: Document 04/25/18 16:44 MIGDALIA (Rec: 04/25/18 17:09 MIGDALIA ALVARENGA) Nutritional Asmnt/Malnutrition Patient General Information Nutritional Screening High Risk Diagnosis hyperglycemia, possible GI bleed Pertinent Medical Hx/Surgical Hx DM type II Subjective Information Pt was resting in ICU unit at time of visit. Per MD note, Pt 's aware of his diabetes, but has been non-compliant with his medications. Current Diet Order/ Nutrition Support NPO Pertinent Medications novolog, zosyn, reglan, zofran , protonix, piperacillin, Nacl 0.45% Pertinent Labs 04/25: glucose 282, Na 135, POC 217-260, Alb 4.0 04/24: glucose 470, Na 132, Cl 93, POC 250-426, Mg 1.8 Nutritional Hx/Data Height 1.73 m Height (Calculated Centimeters) 172.7 Current Weight (lbs) 59.829 kg Weight (Calculated Kilograms) 59.8 Weight (Calculated Grams) 06991.8 [place] Body Weight 154 lb Body Mass Index (BMI) 20.0 Weight Status Approriate GI Symptoms GI Symptoms Nausea Vomitting Last BM 04/24 Food Allergies No Skin Integrity/Comment: intact Estimated Nutritional Goals BEE in Kcals: Using Current wt Calories/Kcals/Kg 25-30 Kcals Calculated 6048-0283 Protein: Using Current wt Protein g/k.8-1 Protein Calculated 48-60 g Fluid: ml 1776-2832 (1 ml/kcal) Nutritional Problem 1. Problem Problem Altered nutrition related lab values Etiology hx of DM type II and non- compliance to medications Signs/Symptoms: glucose 282 and POC 260 Malnutrition Alert Is there a minimum of two criteria No selected? Query Text:Check all the applicable criteria. A minimum of two criteria are recommended for diagnosis of either severe or non-severe malnutrition. Malnutrition Related to Morbid Obesity Malnutrition related to morbid obesity No Intervention/Recommendation Comments 1. Monitor NPO status. Will provide nutrition education when oral diet started. 2. Monitor glucose labs. MD to manage insulin regimen. 3. F/U as high risk in 2-3 days, 04/27-04/28 Expected Outcomes/Goals Expected Outcomes/Goals 1. Start PO intake once able to and meet at least 75% of nutritional needs 2. labs to approach normal limits Reviewed by Debbie Brown RD
[2018-04-28 08:39] LABS: % BASOPHILS 0.4 % (0.0-2.0); % EOSINOPHILS 1.1 % (0.0-5.0); % LYMPHOCYTES 21.1 % (20.0-50.0); % MONOCYTES 6.9 % (2.0-10.0); % NEUTROPHILS 70.5 % (40.0-80.0); EOSINOPHILE ABSOLUTE 0.1 Th/cmm (0.1-0.4); HEMATOCRIT 45.6 % (41.0-60); HEMOGLOBIN 15.7 gm/dL (12-16); LYMPHOCYTE ABSOLUTE 1.9 Th/cmm (1.5-3.0); MEAN CELL VOLUME 83.9 fl (80-99); MEAN CORPUSCULAR HEMOGLOBIN 28.9 pg (26.0-30.0); MEAN CORPUSCULAR HGB CONC 34.4 pg (28.0-36.0); MEAN PLATELET VOLUME 8.5 fl; MONOCYTE ABSOLUTE 0.6 Th/cmm (0.3-1.0); NEUTROPHILE ABSOLUTE 6.4 Th/cmm (1.8-8.0); PLATELET COUNT 195 Th/cmm (150-400); RED BLOOD COUNT 5.44 Mil/cmm (4.30-5.70); RED CELL DISTRIBUTION WIDTH 11.7 % (11.5-20.0)
[2018-04-28 08:56] LABS: ALB/GLOB RATIO 1.6 (1.0-1.8); ALBUMIN 3.4 gm/dL (4.2-5.5); ALKALINE PHOSPHATASE 44 U/L (34-104); ANION GAP 13.9 (7.0-16.0); BILIRUBIN,TOTAL 0.6 mg/dL (0.3-1.0); BUN - UREA NITROGEN 10 mg/dL (7-25); CALCIUM SERUM 8.7 mg/dL (8.6-10.3); CARBON DIOXIDE 25.9 mEq/L (21.0-31.0); CHLORIDE 99 mEq/L (98-107); CREATININE - SERUM 0.9 mg/dL (0.7-1.3); GFR AFRICAN-AMERICAN > 60.0 ml/min (>90); GFR NON AFRICAN-AMERICAN > 60.0 ml/min; GLUCOSE 233 mg/dL (70-105); SGOT 13 U/L (13-39); SGPT/ALT 19 U/L (7-52); SODIUM SERUM 136 mEq/L (136-145); TOTAL PROTEIN,SERUM 5.5 gm/dL (6.0-8.3)
[2018-04-28 09:16] LABS: POTASSIUM SERUM 2.8 mEq/L (3.5-5.1)
[2018-04-28] MEDS: KCL 20mEq/100mL Premix 20 MEQ/100 ML PIGGYBACK IV SCH ×2 (09:39→11:41)
[2018-04-28] MEDS ORDERED: Potassium Chloride 20 mEq ER Tab PO ONE (15:32)
--- NOTE | 2018-05-02 09:53 | Discharge Summary ---
DATE OF DISCHARGE: 04/28/2018 PRELIMINARY DIAGNOSES: 1. Hyperglycemia. 2. Diabetes mellitus, uncontrolled. 3. Possible gastrointestinal bleed. 4. Diabetic ketoacidosis. 5. Leukocytosis. 6. Urinary retention. 7. Splenomegaly. 8. Enlarged prostate. DISCHARGE DIAGNOSES: 1. Hyperglycemia, improved. 2. Diabetes mellitus, controlled. 3. Diabetic ketoacidosis, resolved. 4. Leukocytosis, now normal. 5. Urinary retention, now resolved. 6. Splenomegaly, now improved. 7. Diarrhea. 8. Mild right hydronephrosis. 9. Gastroparesis. 10. Possible neurogenic bladder. 11. Hypokalemia. HISTORY OF PRESENT ILLNESS: This is a 33-year-old male who presents to [facility] ER for increased abdominal pain, nausea, vomiting, which began 1 day prior to admission. The patient has a history of diabetes mellitus. Apparently, had stopped taking his medications years ago, was able to control it with diet and exercise, presents to the ER with initial lab work revealing a white count of 14, hemoglobin of 16.3, hematocrit 49.8 and platelets 240. Sodium was noted at 132, potassium 3.9, BUN and creatinine 22 and 1.2, glucose was over 470 and magnesium 1.8. UA: Glucose was greater than 1000, ketones greater than 80 and blood was small. PHYSICAL EXAMINATION: VITAL SIGNS: Blood pressure was 144/94, respirations 12 and pulse 109. PAST MEDICAL HISTORY: The patient has a previous medical history of diabetes, previously controlled with diet and exercise. SOCIAL HISTORY: The patient denies any drinking or smoking. Lives with his family. The patient was subsequently admitted to ICU for further evaluation and treatment. HOSPITAL COURSE: The patient improved during his hospital stay, was given IV fluids, initially was placed on insulin sliding scale low dose. His appetite of course was low, and therefore, we gave him some Zofran to control his nausea. The patient was initially placed on IV Zosyn because of high white count, initially noted to be 14,000. Repeat CBC revealed white count on 04/25/2018 of 17, but on 04/26/2018 had dropped down to 9.9. White count on day of discharge was back to normal at 9.0. The patient was placed on Accu-Cheks at bedtime and a.c. Blood sugars had improved initially in the 400s, was subsequently decreased back down to the 200s. He was then slowly introduced to glyburide 5 mg once daily once his appetite improved. The patient was placed on a clear liquid initially, then full liquid and then slowly advanced to a soft diet. During his course of treatment the patient was seen and evaluated by Urology for mild hydronephrosis. Please see dictated report. The patient also was reported to have had some vomiting of blood; however, his H and H remained about the same throughout his stay. He was seen and evaluated by Dr. Swanson for GI. The patient was diagnosed with gastroparesis and placed on Reglan, which was subsequently discontinued. The patient was also seen and evaluated by ID due to the high white count, but blood cultures and urine cultures were all negative. Subsequently, Zosyn was discontinued. The patient was subsequently discharged in stable condition. Follow up with his regular physician in 3-5 days. The patient was given a prescription for glipizide 5 mg twice a day. Advised to follow up with regular physician and have a routine physical and repeat lab work. JOB# [id number]
== END 2018-04-28 16:00 | disposition home or self-care (01) | DRG 420 ==
LOC: ER 12:05 → ICU 15:04
PROVIDERS: ADMIT Family Medicine; ATTEND Family Medicine
DX: E11.10 Type 2 diabetes mellitus with ketoacidosis without coma (principal); K31.84 Gastroparesis; K92.2 Gastrointestinal hemorrhage, unspecified; N13.30 Unspecified hydronephrosis; R16.1 Splenomegaly, not elsewhere classified; R33.9 Retention of urine, unspecified; N40.0 Benign prostatic hyperplasia without lower urinary tract symptoms; K31.89 Other diseases of stomach and duodenum; F17.210 Nicotine dependence, cigarettes, uncomplicated; R19.7 Diarrhea, unspecified; E11.43 Type 2 diabetes mellitus with diabetic autonomic (poly)neuropathy; E87.6 Hypokalemia; R79.89 Other specified abnormal findings of blood chemistry; Z91.14 Patient's other noncompliance with medication regimen; Z79.84 Long term (current) use of oral hypoglycemic drugs
CPT/HCPCS: 36415-UA; 36600-90; 71045-TC; 80053-TC; 80307; 81001-TC; 82140-TC; 82150-TC; 82248-TC; 82270-TC; 82271; 82803-TC; 82947-TC; 82948-90; 83036-90; 83605; 83690-TC; 83735-TC; 84100-TC; 84132-TC; 84443-TC; 84484-TC; 85025-TC; 86850-TC; 86900-TC; 86901-TC; 93005; 96375; C9113; J1170; J1815; J2060; J2405; J2543; J2765; J3475; J3480; J7030; Z7610

== ENCOUNTER 2018-07-18 16:19 | Emergency (ER) | payer MEDICAID, OTHER ==
--- NOTE | 2018-07-18 17:04 | ED Physician Chart ---
ED Chief Complaint/HPI - Patient Information Date Seen:: 07/18/18 Time Seen:: 16:40 Chief Complaint:: DIZZINESS History of Present Illness:: THIS IS A 33 YO MALE WITH CONCERN ABOUT DIZZY SPELLS, WEAKNESS AND NOT FEELING WELL. HE WAS SEEN IN THIS HOSPITAL IN [place] AND HOSPITALIZED WITH DIABETIC KETOSIS. HE DENIES NAUSEA,VOMITING AND DIARRHEA. Allergies:: Allergies Allergy/AdvReac Type Severity Reaction Status Date / Time No Known Allergies Allergy Verified 07/18/18 16:34 Vitals:: Vital Signs - 8 hr 07/18/18 16:35 Temp 97.6 F HR 90 RR 18 BP 106/67 O2 Sat % 98 Historian:: Patient, Other () ED Review of Systems - Review of Systems General/Constitutional: No fever, No chills, No weight loss, Weakness, No diaphoresis, No edema, No loss of appetite Skin: No skin lesions, No rash, No bruising Head: No headache, Light headed Eyes: No loss of vision, No pain, No diplopia ENT: No earache, No nasal drainage, No sore throat, No tinnitus Neck: No neck pain, No swelling, No thyromegaly, No stiffness, No mass noted Cardio Vascular: No chest pain, No palpitations, No PND, No orthopnea, No edema Pulmonary: No SOB, No cough, No sputum, No wheezing GI: No nausea, No vomiting, No diarrhea, No pain, No melena, No hematochezia, No constipation, No hematemesis G/U: No dysuria, No frequency, No hematuria Musculoskeletal: No bone or joint pain, No back pain, No muscle pain Endocrine: No polyuria, No polydipsia Psychiatric: No prior psych history, No depression, No anxiety, No suicidal ideation Hematopoietic: No bruising, No lymphadenopathy Allergic/Immuno: No urticaria, No angioedema Neurological: No syncope, No focal symptoms, No weakness, No paresthesia, No headache, No seizure, No dizziness, No confusion, No vertigo ED Past Medical History - Past Medical History Obtainable: Yes Past Medical History: DM Family History: None Social History: Smoker (A PCK A DAY), No Alcohol, Illicit Drug Use (THC), Surgical History: None Psychiatricy History: None Family Medical History - Family Member Mother History Unknown: Yes Living Status: Still Living Hx Family Cancer: No Hx Family Coronary Artery Disease: No Hx Family Congestive Heart Failure: No Hx Family Hypertension: Yes Hx Family Stroke: No Hx Family Diabetes: Yes Hx Family Seizures: No Hx Family Dementia: No Hx Family AIDS: No Hx Family HIV: No Hx Family COPD: No Hx Family Hepatitis: No Hx Family Psychiatric Problems: No Hx Family Tuberculosis: No ED Physical Exam - Physical Examination General/Constitutional: Awake, Well-developed, well-nourished, Alert, No distress, GCS 15, Non-toxic appearing, Ambulatory Head: Atraumatic Eyes: Lids, conjuctiva normal, PERRL, EOMI Skin: Nl inspection, No rash, No skin lesions, No ecchymosis, Well hydrated, No lymphadenopathy ENMT: External ears, nose nl, Nasal exam nl, Lips, teeth, gums nl Neck: Nontender, Full ROM w/o pain, No JVD, No nuchal rigidity, No bruit, No mass, No stridor Respiratory: Nl effort/Exclusion, Clear to Auscultation, No Wheeze/Rhonchi/Rales Cardio Vascular: RRR, No murmur, gallop, rubs, NL S1 S2 GI: No tenderness/rebounding/guarding, No organomegaly, No hernia, Normal BS's, Nondistended, No mass/bruits, No McBurney tenderness : No CVA tenderness Extremities: No tenderness or effusion, Full ROM, normal strength in all extremities, No edema, Normal digits & nails Neuro/Psych: Alert/oriented, DTR's symmetric, Normal sensory exam, Normal motor strength, Judgement/insight normal, Mood normal, Normal gait, No focal deficits Misc: Normal back, No paraspinal tenderness ED Labs/Radiology/EKG Results - Lab Results Results: Abnormal Lab Results 07/18/18 07/18/18 07/18/18 17:25 17:30 17:30 WBC RBC Hgb Hct MCV MCH MCHC Differential RDW Plt Count MPV Neutrophils % Lymphocytes % Monocytes % Eosinophils % Basophils % PT 9.7 INR 0.93 PTT (Actin FS) 21.3 L Sodium Potassium Chloride Carbon Dioxide Anion Gap BUN Creatinine Est GFR ( Amer) Est GFR (Non-Af Amer) BUN/Creatinine Ratio Glucose Calcium Total Bilirubin AST ALT Alkaline Phosphatase Troponin I < 0.01 L Total Protein Albumin Globulin Albumin/Globulin Ratio Urine Color YELLOW Urine Clarity CLEAR Urine pH 6.0 Ur Specific [place] 1.010 Urine Protein NEGATIVE Urine Glucose (UA) >=1000 H Urine Ketones 40 H Urine Blood SMALL H Urine Nitrate NEGATIVE Urine Bilirubin NEGATIVE Urine Urobilinogen 0.2 Ur Leukocyte Esterase NEGATIVE 07/18/18 07/18/18 17:30 17:30 WBC 6.5 RBC 5.17 Hgb 14.6 Hct 43.4 MCV 84.0 MCH 28.2 MCHC Differential 33.6 RDW 11.8 Plt Count 184 MPV 9.2 Neutrophils % 68.7 Lymphocytes % 22.8 Monocytes % 5.8 Eosinophils % 1.7 Basophils % 1.0 PT INR PTT (Actin FS) Sodium 135 L Potassium 4.4 Chloride 97 L Carbon Dioxide 27.8 Anion Gap 14.6 BUN 26 H Creatinine 1.0 Est GFR ( Amer) > 60.0 Est GFR (Non-Af Amer) > 60.0 BUN/Creatinine Ratio 26.0 Glucose 482 H* Calcium 9.1 Total Bilirubin 0.4 AST 22 ALT 41 Alkaline Phosphatase 88 Troponin I Total Protein 5.8 L Albumin 3.6 L Globulin 2.2 Albumin/Globulin Ratio 1.6 Urine Color Urine Clarity Urine pH Ur Specific [place] Urine Protein Urine Glucose (UA) Urine Ketones Urine Blood Urine Nitrate Urine Bilirubin Urine Urobilinogen Ur Leukocyte Esterase - Radiology Results Comments:: CHEST X-RAY = NAD ED Assessment - Assessment General Assessment: DIABETES MELLITUS ED Septic Shock - . Is Septic Shock (SBP<90, OR Lactate>4 mmol\L) present?: No - <6hrs of presentation: Vital Signs: Vital Signs - 8 hr 07/18/18 16:35 Temp 97.6 F HR 90 RR 18 BP 106/67 O2 Sat % 98 ED Reassessment (Disposition) - Reassessment Reassessment Condition:: Improved - Diagnosis Diagnosis:: DIABETES MELLITUS - Aftercare/Follow up Instructions Aftercare/Follow-Up Instructions:: Counseled pt regarding lab results/diagnosis & need follow up, Refer to Discharge Instructions, Counseled pt & family regarding lab results/diagnosis & need follow up - Patient Disposition Discharge/Transfer:: Home Condition at Disposition:: Improved
[2018-07-18 17:54] LABS: % EOSINOPHILS 1.7 % (0.0-5.0); % LYMPHOCYTES 22.8 % (20.0-50.0); % MONOCYTES 5.8 % (2.0-10.0); % NEUTROPHILS 68.7 % (40.0-80.0); BASOPHILE ABSOLUTE 0.1 Th/cumm (0-0.2); EOSINOPHILE ABSOLUTE 0.1 Th/cmm (0.1-0.4); HEMATOCRIT 43.4 % (41.0-60); HEMOGLOBIN 14.6 gm/dL (12-16); LYMPHOCYTE ABSOLUTE 1.5 Th/cmm (1.5-3.0); MEAN CORPUSCULAR HEMOGLOBIN 28.2 pg (26.0-30.0); MEAN CORPUSCULAR HGB CONC 33.6 pg (28.0-36.0); MEAN PLATELET VOLUME 9.2 fl; MONOCYTE ABSOLUTE 0.4 Th/cmm (0.3-1.0); NEUTROPHILE ABSOLUTE 4.4 Th/cmm (1.8-8.0); PLATELET COUNT 184 Th/cmm (150-400); RED BLOOD COUNT 5.17 Mil/cmm (4.30-5.70); RED CELL DISTRIBUTION WIDTH 11.8 % (11.5-20.0); WHITE BLOOD COUNT 6.5 Th/cmm (4.8-10.8)
[2018-07-18 18:07] LABS: INR 0.93 (0.5-1.4); PROTHROMBIN TIME (TEST) 9.7 SECONDS (9.5-11.5)
[2018-07-18 18:17] LABS: URINE SOURCE CLEAN C
[2018-07-18 18:20] LABS: URINE BILIRUBIN NEGATIVE (NEGATIVE); URINE BLOOD SMALL (NEGATIVE); URINE GLUCOSE (UA) >=1000 mg/dL (NEGATIVE); URINE KETONE 40 mg/dL (NEGATIVE); URINE LEUKOCYTE ESTERASE NEGATIVE (NEGATIVE); URINE MICROSCOPIC INDICATED? YES; URINE NITRATE NEGATIVE (NEGATIVE); URINE PROTEIN NEGATIVE (NEGATIVE); URINE UROBILINOGEN 0.2 E.U./dL (0.2 - 1.0)
[2018-07-18 18:21] LABS: ALB/GLOB RATIO 1.6 (1.0-1.8); ALBUMIN 3.6 gm/dL (4.2-5.5); ALKALINE PHOSPHATASE 88 U/L (34-104); ANION GAP 14.6 (7.0-16.0); BILIRUBIN,TOTAL 0.4 mg/dL (0.3-1.0); BUN - UREA NITROGEN 26 mg/dL (7-25); CALCIUM SERUM 9.1 mg/dL (8.6-10.3); CARBON DIOXIDE 27.8 mEq/L (21.0-31.0); CHLORIDE 97 mEq/L (98-107); GFR AFRICAN-AMERICAN > 60.0 ml/min (>90); GFR NON AFRICAN-AMERICAN > 60.0 ml/min; POTASSIUM SERUM 4.4 mEq/L (3.5-5.1); SGOT 22 U/L (13-39); SGPT/ALT 41 U/L (7-52); SODIUM SERUM 135 mEq/L (136-145); TOTAL PROTEIN,SERUM 5.8 gm/dL (6.0-8.3)
[2018-07-18 18:24] LABS: GLUCOSE 482 mg/dL (70-105)
[2018-07-18 18:25] LABS: URINE CLARITY CLEAR (CLEAR); URINE COLOR YELLOW
[2018-07-18] MEDS ORDERED: INSULIN HUMAN REGULAR 100 UNITS/ML UNIT SUBQ ONE (18:40)
[2018-07-18 18:41] LABS: URINE EPITHELIAL CELLS FEW /lpf (FEW); URINE WBC 0-2 /hpf (0-5)
[2018-07-18 18:42] LABS: URINE BACTERIA 1+ /hpf (NONE SEEN)
[2018-07-18] MEDS ORDERED: INSULIN HUMAN REGULAR 100 UNITS/ML UNIT ONE (19:10)
--- NOTE | 2018-07-19 10:20 | Diagnostic Imaging Report ---
Portable chest x-ray Time: 1721 History: Dizziness Allowing for portable technique the heart size is normal. No focal pulmonary parenchymal processes. No hilar or mediastinal abnormalities. Impression: No acute abnormalities.
--- NOTE | 2018-07-19 10:21 | Diagnostic Imaging Report ---
CT scan of the brain without contrast History: Dizziness Total DLP equals 659 CTDI equals 30 7. Axial sections were obtained from the base of the skull to the vertex. There is a normal ventricular system size. No focal parenchymal lesions are seen. No evidence of any mass effect or shift of midline structures. No extra-axial masses or abnormal fluid collections. Impression: Negative examination
== END 2018-07-18 20:00 | disposition home or self-care (01) ==
LOC: ER 16:19
DX: E11.9 Type 2 diabetes mellitus without complications (principal); R42 Dizziness and giddiness; F17.210 Nicotine dependence, cigarettes, uncomplicated
CPT/HCPCS: 99284; 96372; 71045; 70450; 84484; 36415; 36416; 84443; 85025; 85610; 85730; 81001; 83036; 80053; 87040 ×2; J1815; 82948-90; Z7502